=== PATIENT | male | born 1980 | race Caucasian/White ===

== ENCOUNTER 2020-05-20 14:09 | Emergency (ER) | payer SELFPAY ==
--- NOTE | 2020-05-20 16:24 | ER ---
Nurse's Notes [facility] Name: Rolan Torrez Age: 39 yrs Sex: Male : 1980 Arrival Date: 05/20/2020 Time: 14:11 Bed 19 Private MD: Diagnosis: Viral infection, unspecified Presentation: 05/20 14:27 Chief complaint: Patient states: Feeling sick since Tuesday, fever, diarrhea and body ca1 aches. Denies cough and SOB. Reports Nausea. Htemp 100.8F. Coronavirus screen: Patient denies a cough. Patient denies shortness of breath or difficulty breathing. Patient reports a measured and/or subjective temperature greater than 100.4F. Patient denies travel on a cruise ship or to a country the [facility] currently lists as an affected area. Patient denies contact with known and/or suspected case of COVID-19. Surgical mask provided. Instructed to keep mask at all times and keep 6 feet physical distance from other patients/people in the lobby. 14:27 Method Of Arrival: Ambulatory ca1 14:27 Ebola Screen: Patient negative for fever greater than or equal to 101.5 degrees ca1 Fahrenheit, and additional compatible Ebola Virus Disease symptoms Patient denies exposure to infectious person. Patient denies travel to an Ebola-affected area in the 21 days before illness onset. No symptoms or risks identified at this time. Initial Sepsis Screen: Does the patient meet any 2 criteria? No. Patient's initial sepsis screen is negative. Does the patient have a suspected source of infection? No. Patient's initial sepsis screen is negative. Risk Assessment: Do you want to hurt yourself or someone else? Patient reports no desire to harm self or others. Onset of symptoms was May 20, 2020. 14:27 Acuity: YOEL 4 ca1 Historical: - Allergies: 14:30 No Known Allergies; ca1 - Home Meds: 14:30 None [Active]; ca1 - PMHx: 14:30 None; ca1 - PSHx: 14:30 left pinky toe ambutation; ca1 - Immunization history:: Adult Immunizations up to date. - Social history:: Smoking status: Patient reports the use of cigarette tobacco products, smokes one-half pack cigarettes per day. Screenin:35 Abuse screen: Denies threats or abuse. Nutritional screening: No deficits noted. rb1 Tuberculosis screening: No symptoms or risk factors identified. Fall Risk None identified. Assessment: 15:35 General: Appears in no apparent distress. Behavior is calm, cooperative, Reports fever rb1 for Tuesday. Pain: Complains of pain in bodyaches Quality of pain is described as aching. Neuro: Level of Consciousness is awake, alert, obeys commands, Oriented to person, place, time, situation. Cardiovascular: Capillary refill < 3 seconds. Respiratory: Airway is patent Respiratory effort is even, unlabored, Respiratory pattern is regular, symmetrical, Denies cough, shortness of breath. GI: Reports diarrhea, nausea. : No signs and/or symptoms were reported regarding the genitourinary system. Derm: Skin is pink, warm \T\ dry. 16:33 Reassessment: Patient appears in no apparent distress at this time. No changes from rb1 previously documented assessment. Vital Signs: 14:27 BP 118 / 83; Pulse 96; Resp 15 S; Temp 98(TE); Pulse Ox 100% on R/A; Weight 105.69 kg ca1 (R); Height 6 ft. 0 in. (182.88 cm) (R); 14:27 Body Mass Index 31.60 (105.69 kg, 182.88 cm) ca1 ED Course: 14:11 Patient arrived in ED. fj1 14:16 Triage completed. ca1 14:30 Arm band placed on right wrist. ca1 15:30 Brian Mccann PA is PHCP. jr8 15:30 Carlos Enrique Velazquez MD is Attending Physician. jr8 15:31 Shayy Clarke, RN is Primary Nurse. rb1 15:35 Patient has correct armband on for positive identification. Bed in low position. Call rb1 light in reach. Side rails up X 1. Pulse ox on. NIBP on. 16:44 No provider procedures requiring assistance completed. Patient did not have IV access rb1 during this emergency room visit. Administered Medications: No medications were administered Outcome: 16:23 Discharge ordered by . jr8 16:44 Discharged to home ambulatory. rb1 16:44 Condition: stable 16:44 Discharge instructions given to patient, Instructed on discharge instructions, follow up and referral plans. Demonstrated understanding of instructions, follow-up care, Prescriptions given X none 16:45 Patient left the ED. rb1 Addendum: 05/26/2020 10:42 Addendum: COVID-19 Result: Negative result given to RN to notify pt. Attempted to d m5 contact pt regarding negative COVID-19 swab results. Left voice mail. 05/28/2020 12:48 Addendum: COVID-19 Result: Negative result given to RN to notify pt. Attempted to d m5 contact pt regarding negative COVID-19 swab results. Signatures: Nicky Oliver RN RN dm5 Brian Mccann PA PA jr8 Shayy Clarke RN RN rb1 Lisa Maddox RN RN ca1 Kiran Luque fj1 Corrections: (The following items were deleted from the chart) 05/20 14:17 14:11 Chief complaint: Patient states: Tuesday started being so fatigued, SOB with ca1 exertion and burning sensation on chest. Cough and congestion started Tuesday too. Diarrhea stared Tuesday. Reports nausea. Denies vomiting. Denies fever ca1 14:18 14:11 Coronavirus screen: Patient reports a cough. Patient reports shortness of breath ca1 or difficulty breathing. Patient denies measured and/or subjective temperature greater than 100.4F prior to today's visit. Patient denies travel on a cruise ship or to a country the [facility] currently lists as an affected area. Patient denies contact with known and/or suspected case of COVID-19. Surgical mask provided. Instructed to keep mask at all times and keep 6 feet physical distance from other patients/people in the lobby ca1 14:19 14:11 Ebola Screen: Patient negative for fever greater than or equal to 101.5 degrees ca1 Fahrenheit, and additional compatible Ebola Virus Disease symptoms Patient denies exposure to infectious person. Patient denies travel to an Ebola-affected area in the 21 days before illness onset. No symptoms or risks identified at this time. ca1 14:19 14:11 Risk Assessment: Do you want to hurt yourself or someone else? Patient reports no ca1 desire to harm self or others. ca1 14:19 14:11 Initial Sepsis Screen: Does the patient meet any 2 criteria? No. Patient's ca1 initial sepsis screen is negative. Does the patient have a suspected source of infection? No. Patient's initial sepsis screen is negative. ca1 14:19 14:11 Onset of symptoms was May 20, 2020 ca1 ca1 14:19 14:11 Chief complaint: Patient states: Tuesday started being so fatigued, SOB with ca1 exertion and burning sensation on chest. Cough and congestion started Tuesday too. Diarrhea stared Tuesday. Reports nausea. Denies vomiting. Denies fever ca1 14: Coronavirus screen: Patient reports a cough. Patient reports shortness of breath ca1 or difficulty breathing. Patient denies measured and/or subjective temperature greater than 100.4F prior to today's visit. Patient denies travel on a cruise ship or to a country the [facility] currently lists as an affected area. Patient denies contact with known and/or suspected case of COVID-19. Surgical mask provided. Instructed to keep mask at all times and keep 6 feet physical distance from other patients/people in the lobby ca1 14: Method Of Arrival: Ambulatory ca1 ca1 14: Acuity: YOEL 3 ca1 ca1 14: BP 146 / 73; Pulse 83bpm; Resp 19bpm; Spontaneous; Pulse Ox 96% RA; Temp 97.2F ca1 Temporal; 100.7 kg Reported; Height 5 ft. 4 in. Reported; BMI: 38.1; ca1 14: Social history: Smoking status: Patient denies any tobacco usage or history of. ca1 ca1 14: Immunization history: Adult Immunizations ca1 ca1
--- NOTE | 2020-05-20 16:24 | EDPHYS ---
Physician Documentation [facility] Name: Rolan Torrez Age: 39 yrs Sex: Male : 1980 Arrival Date: 05/20/2020 Time: 14:11 Bed 19 Private MD: ED Physician Carlos Enrique Velazquez HPI: 05/20 16:14 This 39 yrs old Male presents to ER via Ambulatory with complaints of Fever, jr8 Cold Symptoms. 16:14 The patient reports fever, not measured (subjective). Onset: The symptoms/episode jr8 began/occurred gradually, 5 day(s) ago. Modifying factors: there are no obvious modifying factors. Associated signs and symptoms: Pertinent positives: arthralgias, diarrhea, headache. Severity of symptoms: At their worst the symptoms were mild in the emergency department the symptoms are unchanged. The patient has not experienced similar symptoms in the past. The patient has not recently seen a physician. Historical: - Allergies: 14:30 No Known Allergies; ca1 - Home Meds: 14:30 None [Active]; ca1 - PMHx: 14:30 None; ca1 - PSHx: 14:30 left pinky toe ambutation; ca1 - Immunization history:: Adult Immunizations up to date. - Social history:: Smoking status: Patient reports the use of cigarette tobacco products, smokes one-half pack cigarettes per day. ROS: 16:14 Eyes: Negative for injury, pain, redness, and discharge, ENT: Negative for injury, jr8 pain, and discharge, Neck: Negative for injury, pain, and swelling, Cardiovascular: Negative for chest pain, palpitations, and edema, Respiratory: Negative for shortness of breath, cough, wheezing, and pleuritic chest pain, Back: Negative for injury and pain, MS/Extremity: Negative for injury and deformity, Skin: Negative for injury, rash, and discoloration. 16:14 Constitutional: Positive for body aches, chills, fever, malaise. 16:14 Abdomen/GI: Positive for diarrhea, Negative for abdominal pain, nausea, vomiting, abdominal cramps, abdominal distension. 16:14 Neuro: Positive for headache. Exam: 16:14 Eyes: Pupils equal round and reactive to light, extra-ocular motions intact. Lids and jr8 lashes normal. Conjunctiva and sclera are non-icteric and not injected. Cornea within normal limits. Periorbital areas with no swelling, redness, or edema. ENT: Nares patent. No nasal discharge, no septal abnormalities noted. Tympanic membranes are normal and external auditory canals are clear. Oropharynx with no redness, swelling, or masses, exudates, or evidence of obstruction, uvula midline. Mucous membranes moist. Neck: Trachea midline, no thyromegaly or masses palpated, and no cervical lymphadenopathy. Supple, full range of motion without nuchal rigidity, or vertebral point tenderness. No Meningismus. Cardiovascular: Regular rate and rhythm with a normal S1 and S2. No gallops, murmurs, or rubs. Normal PMI, no JVD. No pulse deficits. Respiratory: Lungs have equal breath sounds bilaterally, clear to auscultation and percussion. No rales, rhonchi or wheezes noted. No increased work of breathing, no retractions or nasal flaring. Abdomen/GI: Soft, non-tender, with normal bowel sounds. No distension or tympany. No guarding or rebound. No evidence of tenderness throughout. Back: No spinal tenderness. No costovertebral tenderness. Full range of motion. Skin: Warm, dry with normal turgor. Normal color with no rashes, no lesions, and no evidence of cellulitis. MS/ Extremity: Pulses equal, no cyanosis. Neurovascular intact. Full, normal range of motion. Neuro: Awake and alert, GCS 15, oriented to person, place, time, and situation. Cranial nerves II-XII grossly intact. Motor strength 5/5 in all extremities. Sensory grossly intact. Cerebellar exam normal. Normal gait. Vital Signs: 14:27 BP 118 / 83; Pulse 96; Resp 15 S; Temp 98(TE); Pulse Ox 100% on R/A; Weight 105.69 kg ca1 (R); Height 6 ft. 0 in. (182.88 cm) (R); 14:27 Body Mass Index 31.60 (105.69 kg, 182.88 cm) ca1 MDM: 15:30 Patient medically screened. jr8 16:14 Data reviewed: vital signs, nurses notes, lab test result(s), and as a result, I will jr8 discharge patient. Data interpreted: Pulse oximetry: on room air is 100 %. Interpretation: normal. Counseling: I had a detailed discussion with the patient and/or guardian regarding: the historical points, exam findings, and any diagnostic results supporting the discharge/admit diagnosis, lab results, the need for outpatient follow up, a family practitioner, to return to the emergency department if symptoms worsen or persist or if there are any questions or concerns that arise at home. ED course: Explained to patient that he needs to isolate until he gets his covid results back. High suspicion based on presentation for Covid. If worse to come back . 05/20 15:48 Order name: COVID-Yvrose diane Administered Medications: No medications were administered Disposition: 05/20/20 16:23 Discharged to Home. Impression: Viral infection, unspecified. - Condition is Stable. - Discharge Instructions: Viral Respiratory Infection, COVID-19. - Medication Reconciliation Form, Thank You Letter, Antibiotic Education, Prescription Opioid Use form. - Follow up: Private Physician; When: 5 - 6 days; Reason: Recheck today's complaints, Continuance of care, Re-evaluation by your physician. - Problem is new. - Symptoms have improved. Addendum: 05/22/2020 21:14 Co-signature as Attending Physician, Carlos Enrique Velazquez MD Did not see or evaluate patient. p s1 I was available in the ED for consultation. Signature for administrative purposes. . Signatures: Dispatcher [employer] EDMS Brian Mccann PA PA jr8 Shayy Clarke, RN RN rb1 Carlos Enrique Velazquez MD MD ps1 Lisa Maddox RN RN ca1 Corrections: (The following items were deleted from the chart) 05/20 14:19 14:11 Social history: Smoking status: Patient denies any tobacco usage or history of. ca1 ca1 14:19 14:11 Immunization history: Adult Immunizations ca1 ca1 16:45 16:23 05/20/2020 16:23 Discharged to Home. Impression: Viral infection, unspecified. rb1 Condition is Stable. Forms are Medication Reconciliation Form, Thank You Letter, Antibiotic Education, Prescription Opioid Use. Follow up: Private Physician; When: 5 - 6 days; Reason: Recheck today's complaints, Continuance of care, Re-evaluation by your physician. Problem is new. Symptoms have improved. jr8
[2020-05-20 16:52] VITALS: BP 118/83; TEMP 98; O2SAT 100
== END 2020-05-20 16:45 | disposition home or self-care (01) ==
LOC: ER 14:09
DX: B34.9 Viral infection, unspecified (principal); Z20.828 Contact with and (suspected) exposure to other viral communicable diseases; F17.210 Nicotine dependence, cigarettes, uncomplicated
CPT/HCPCS: 99283; U0001

== ENCOUNTER 2021-02-24 14:52 | Emergency (ER) | payer SELFPAY ==
--- NOTE | 2021-02-24 15:57 | RAD REPORT ---
EXAM DESCRIPTION: RAD - Chest Single View - 02/24/2021 3:41 pm CLINICAL HISTORY: Congestion;Cough COMPARISON: Two view chest August 2016 TECHNIQUE: AP portable chest image was obtained 02/24/2021 3:41 pm . FINDINGS: Lungs are clear. Heart and vasculature are normal. No measurable pleural effusion and no p neumothorax. No acute bony abnormality seen. No acute aortic findings suspected. IMPRESSION: No acute cardiopulmonary process. No significant change from comparison study.
[2021-02-24] MEDS ORDERED: ALBUTEROL 2.5 MG/3 ML NEB SOL ONE (16:00)
[2021-02-24] MEDS ORDERED: IPRATROPIUM BROM 0.5MG/2.5ML ONE (16:00)
[2021-02-24] MEDS ORDERED: predniSONE 20 MG TAB ONE (16:00)
[2021-02-24 16:54] LABS: SARS-COV-2 RT PCR NEGATIVE (NEGATIVE)
--- NOTE | 2021-02-24 17:08 | EDPHYS ---
Physician Documentation [facility] Name: Rolan Torrez Age: 40 yrs Sex: Male : 1980 Arrival Date: 02/24/2021 Time: 14:59 Bed 4 Private MD: ED Physician Javier Webb HPI: 02/24 17:28 This 40 yrs old Male presents to ER via Ambulatory with complaints of Fever, kdr Cough. 17:43 The patient or guardian reports airway noise, cough, difficulty breathing, flu kdr symptoms, arthralgias, low-grade fever, myalgias, no appetite. Onset: The symptoms/episode began/occurred gradually, 2 week(s) ago. Severity of symptoms: At their worst the symptoms were mild, in the emergency department the symptoms are unchanged. Modifying factors: The symptoms are alleviated by nothing, the symptoms are aggravated by nothing. Associated signs and symptoms: Pertinent positives: fever, nausea, rhinorrhea, sore throat. The patient has not experienced similar symptoms in the past. The patient has been recently seen by a physician: the patient's primary care provider, Had negative COVID test three days ago. Historical: - Allergies: 15:22 No Known Allergies; jl7 - Home Meds: 15:22 None [Active]; jl7 - PMHx: 15:22 None; jl7 - PSHx: 15:22 None; jl7 - Immunization history:: Adult Immunizations not up to date. - Social history:: Smoking status: Patient reports the use of cigarette tobacco products, smokes one-half pack cigarettes per day. ROS: 17:43 Constitutional: Negative for fever, chills, and weight loss, Eyes: Negative for injury, kdr pain, redness, and discharge, Neck: Negative for injury, pain, and swelling, Cardiovascular: Negative for chest pain, palpitations, and edema, Abdomen/GI: Negative for abdominal pain, nausea, vomiting, diarrhea, and constipation, Back: Negative for injury and pain, : Negative for injury, bleeding, discharge, and swelling, MS/Extremity: Negative for injury and deformity, Skin: Negative for injury, rash, and discoloration, Neuro: Negative for headache, weakness, numbness, tingling, and seizure activity. Psych: Negative for depression, anxiety, suicide ideation, homicidal ideation, and hallucinations, Allergy/Immunology: Negative for hives, rash, and allergies, Endocrine: Negative for neck swelling, polydipsia, polyuria, polyphagia, and marked weight changes, Hematologic/Lymphatic: Negative for swollen nodes, abnormal bleeding, and unusual bruising. 17:43 Respiratory: Positive for cough, with no reported sputum, dyspnea on exertion, shortness of breath, Negative for hemoptysis, orthopnea, pleurisy. Exam: 17:43 Constitutional: This is a well developed, well nourished patient who is awake, alert, kdr and in no acute distress. Head/Face: Normocephalic, atraumatic. Eyes: Pupils equal round and reactive to light, extra-ocular motions intact. Lids and lashes normal. Conjunctiva and sclera are non-icteric and not injected. Cornea within normal limits. Periorbital areas with no swelling, redness, or edema. Neck: Trachea midline, no thyromegaly or masses palpated, and no cervical lymphadenopathy. Supple, full range of motion without nuchal rigidity, or vertebral point tenderness. No Meningismus. Chest/axilla: Normal chest wall appearance and motion. Nontender with no deformity. No lesions are appreciated. Cardiovascular: Regular rate and rhythm with a normal S1 and S2. No gallops, murmurs, or rubs. Normal PMI, no JVD. No pulse deficits. Respiratory: Lungs have equal breath sounds bilaterally, clear to auscultation and percussion. No rales, rhonchi or wheezes noted. No increased work of breathing, no retractions or nasal flaring. Abdomen/GI: Soft, non-tender, with normal bowel sounds. No distension or tympany. No guarding or rebound. No evidence of tenderness throughout. Back: No spinal tenderness. No costovertebral tenderness. Full range of motion. Skin: Warm, dry with normal turgor. Normal color with no rashes, no lesions, and no evidence of cellulitis. MS/ Extremity: Pulses equal, no cyanosis. Neurovascular intact. Full, normal range of motion. Neuro: Awake and alert, GCS 15, oriented to person, place, time, and situation. Cranial nerves II-XII grossly intact. Motor strength 5/5 in all extremities. Sensory grossly intact. Cerebellar exam normal. Normal gait. Psych: Awake, alert, with orientation to person, place and time. Behavior, mood, and affect are within normal limits. Vital Signs: 15:11 BP 113 / 86; Pulse 84; Resp 17 S; Temp 97.4(TE); Pulse Ox 100% on R/A; Weight 104.33 kg jl7 (R); Height 6 ft. 0 in. (182.88 cm) (R); Pain 1/10; 15:11 Body Mass Index 31.19 (104.33 kg, 182.88 cm) jl7 MDM: 17:07 Patient medically screened. kdr 17:43 Data reviewed: vital signs, nurses notes, lab test result(s), radiologic studies. kdr Counseling: I had a detailed discussion with the patient and/or guardian regarding: the historical points, exam findings, and any diagnostic results supporting the discharge/admit diagnosis, lab results, radiology results, the need for outpatient follow up. 02/24 15:27 Order name: CXR XRAY; Complete Time: 17:06 kdr 02/24 15:27 Order name: Strep; Complete Time: 17:06 kdr 02/24 16:25 Order name: Throat Culture EDMS 02/24 16:54 Order name: COVID-19/FLU A+B; Complete Time: 17:06 EDMS Administered Medications: 15:47 Not Given (Patient Refused): Albuterol - atroVENT (ipratropium) (3:1) (2.5 mg - 0.5 mg) jd3 3 ml Nebulizer once 15:47 Drug: predniSONE 60 mg Route: PO; jd3 16:00 Follow up: Response: No adverse reaction jd3 Disposition: 02/24/21 17:07 Discharged to Home. Impression: Viral infection, unspecified, Acute upper respiratory infection, unspecified, Bronchitis, not specified as acute or chronic. - Condition is Stable. - Discharge Instructions: Upper Respiratory Infection, Adult, Acute Bronchitis, [id number], Upper Respiratory Infection, Adult, Atue-kn-Egam, Viral Respiratory Infection, Zoru-Mj-Mgpm. - Prescriptions for Tessalon Perles 100 mg Oral Capsule - take 1 capsule by ORAL route every 8 hours As needed; 15 capsule. Albuterol Sulfate 90 mcg/actuation - inhale 1-2 puff by INHALATION route every 4-6 hours; 1 Inhaler. - Medication Reconciliation Form, Thank You Letter, Work release form form. - Follow up: Private Physician; When: 2 - 3 days; Reason: If symptoms return, Further diagnostic work-up, Recheck today's complaints, Continuance of care, Re-evaluation by your physician. - Problem is an ongoing problem. - Symptoms are unchanged. Signatures: Dispatcher [employer] [facility] Javier Webb MD MD kdr Leal, Jahala RN RN jl7 Pierre Lerma RN RN jd3 Corrections: (The following items were deleted from the chart) 15:54 15:28 Influenza Screen (A \T\ B)+BA.LAB.BRZ ordered. EDCT EDCT 15:55 15:28 CORONAVIRUS+MR.LAB.BRZ ordered. [facility] EDCT 17:24 17:07 02/24/2021 17:07 Discharged to Home. Impression: Viral infection, unspecified; jl7 Acute upper respiratory infection, unspecified; Bronchitis, not specified as acute or chronic. Condition is Stable. Forms are Medication Reconciliation Form, Thank You Letter, Antibiotic Education, Prescription Opioid Use. Follow up: Private Physician; When: 2 - 3 days; Reason: If symptoms return, Further diagnostic work-up, Recheck today's complaints, Continuance of care, Re-evaluation by your physician. Problem is an ongoing problem. Symptoms are unchanged. kdr
--- NOTE | 2021-02-24 17:08 | ER ---
Nurse's Notes [facility] Name: Rolan Torrez Age: 40 yrs Sex: Male : 1980 Arrival Date: 02/24/2021 Time: 14:59 Bed 4 Private MD: Diagnosis: Viral infection, unspecified;Acute upper respiratory infection, unspecified;Bronchitis, not specified as acute or chronic Presentation: 02/24 15:11 Chief complaint: Patient states: Cough, runny nose, chills, loss of smell and taste jl7 since 02-14-21, had a negative COVID test 3 days ago, continues to feel bad. Coronavirus screen: chills, cough unrelated to allergies, fatigue, runny nose, loss of taste or smell. Ebola Screen: No symptoms or risks identified at this time. Initial Sepsis Screen: Does the patient meet any 2 criteria? No. Patient's initial sepsis screen is negative. Does the patient have a suspected source of infection? No. Patient's initial sepsis screen is negative. Risk Assessment: Do you want to hurt yourself or someone else? Patient reports no desire to harm self or others. Onset of symptoms was February 14, 2021. Care prior to arrival: None. Transition of care: patient was not received from another setting of care. 15:11 Method Of Arrival: Ambulatory [facility] 15:11 Acuity: YOEL 4 jl7 Triage Assessment: 15:22 General: Appears in no apparent distress. uncomfortable, Behavior is calm, cooperative, jl7 appropriate for age. Pain: Denies pain. Historical: - Allergies: 15:22 No Known Allergies; jl7 - Home Meds: 15:22 None [Active]; jl7 - PMHx: 15:22 None; jl7 - PSHx: 15:22 None; jl7 - Immunization history:: Adult Immunizations not up to date. - Social history:: Smoking status: Patient reports the use of cigarette tobacco products, smokes one-half pack cigarettes per day. Screenin:05 Abuse screen: Denies threats or abuse. Nutritional screening: No deficits noted. jd3 Tuberculosis screening: No symptoms or risk factors identified. Fall Risk Ambulatory Aid- None/Bed Rest/Nurse Assist (0 pts). Gait- Normal/Bed Rest/Wheelchair (0 pts) Mental Status- Oriented to own ability (0 pts). Total Sandhu Fall Scale indicates No Risk (0-24 pts). Assessment: 16:10 General: Appears in no apparent distress. comfortable, Behavior is calm, cooperative, jd3 appropriate for age. Pain: Complains of pain in head Quality of pain is described as aching. Neuro: Level of Consciousness is awake, alert, obeys commands, Oriented to person, place, time, situation. Cardiovascular: Denies chest pain, Capillary refill < 3 seconds Patient's skin is warm and dry. Respiratory: Reports cough that is non-productive, persistent Airway is patent Respiratory effort is even, unlabored, Respiratory pattern is regular, symmetrical, Denies shortness of breath. GI: No signs and/or symptoms were reported involving the gastrointestinal system. : No signs and/or symptoms were reported regarding the genitourinary system. EENT: Reports nasal congestion nasal discharge. Derm: Skin is intact, Skin is dry, Skin is normal, Skin temperature is warm. Musculoskeletal: Circulation, motion, and sensation intact. Range of motion: intact in all extremities. 17:04 Reassessment: Patient appears in no apparent distress at this time. No changes from jd3 previously documented assessment. Patient and/or family updated on plan of care and expected duration. Pain level reassessed. Patient is alert, oriented x 3, equal unlabored respirations, skin warm/dry/pink. Vital Signs: 15:11 BP 113 / 86; Pulse 84; Resp 17 S; Temp 97.4(TE); Pulse Ox 100% on R/A; Weight 104.33 kg jl7 (R); Height 6 ft. 0 in. (182.88 cm) (R); Pain 1/10; 15:11 Body Mass Index 31.19 (104.33 kg, 182.88 cm) jl7 ED Course: 14:59 Patient arrived in ED. mr 14:59 Javier Webb MD is Attending Physician. kdr 15:21 Triage completed. jl7 15:22 Arm band placed on right wrist. jl7 15:23 Pierre Lerma, ROM is Primary Nurse. jd3 15:41 CXR XRAY In Process Unspecified. EDMS 17:05 Patient has correct armband on for positive identification. Bed in low position. Call jd3 light in reach. Side rails up X 1. Adult w/ patient. Pulse ox on. NIBP on. 17:23 No provider procedures requiring assistance completed. Patient did not have IV access jl7 during this emergency room visit. Administered Medications: 15:47 Not Given (Patient Refused): Albuterol - atroVENT (ipratropium) (3:1) (2.5 mg - 0.5 mg) jd3 3 ml Nebulizer once 15:47 Drug: predniSONE 60 mg Route: PO; jd3 16:00 Follow up: Response: No adverse reaction jd3 Outcome: 17:07 Discharge ordered by . kdr 17:23 Discharged to home ambulatory. jl7 17:23 Condition: stable 17:23 Discharge instructions given to patient, Instructed on discharge instructions, follow up and referral plans. medication usage, Demonstrated understanding of instructions, follow-up care, medications, Prescriptions given X 2. 17:24 Patient left the ED. jl7 Signatures: Dispatcher [employer] EDMS Javier Webb MD MD kdr Rivera, Cal Ervin RN RN jl7 Pierre Lerma RN RN jd3
[2021-02-24 17:29] VITALS: BP 113/86; TEMP 97.4; O2SAT 100
== END 2021-02-24 17:24 | disposition home or self-care (01) ==
LOC: ER 14:52
DX: B34.9 Viral infection, unspecified (principal); J06.9 Acute upper respiratory infection, unspecified; J40 Bronchitis, not specified as acute or chronic; F17.210 Nicotine dependence, cigarettes, uncomplicated; Z20.822 Contact with and (suspected) exposure to COVID-19
CPT/HCPCS: 0240U; 71045; 87070; 87081; 99284; J7512

== ENCOUNTER 2022-03-10 13:19 | Emergency (ER) | payer SELFPAY ==
--- OUTSIDE RECORDS SUMMARY | 2022-03-10 13:22 | XMS REPORT | Continuity of Care Document ---
:1980 Author Organization [facility] t Address [address] [place] [address] Care Team Providers Name Role Phone Unavailable Unavailable Unavailable Problems This patient has no known problems. Allergies, Adverse Reactions, Alerts This patient has no known allergies or adverse reactions. Medications This patient has no known medications. Procedures This patient has no known procedures. Results Test Description Test Time Test Comments Results Result Comments Source SARS-CoV-2 (COVID-19), RT-PCR/TMA 2021-11-24 07:58:53 Test Item Value Reference Range Interpretation Comme nts SARS-CoV-2 INTERPRETATION NEGATIVE SEE NOTE S ARS-CoV-2 RNA NOT (test code = 30509) DETECTED Negative results do not preclude SARS-C oV-2 infection and should notb e used as the sole basis for patient management deci sions. Negativeresults must be combined with clinical o bservations, patient history ,and epidemiological information. Optimum specime n types and timingfor peak viral levels during infectio ns caused by SARS-CoV-2 have notbeen determined. Col lection of multiple specim ens or types ofspecimens may be necessary to detect virus. I mproper specimencollect ion and handling, sequence variab ility under primers/probes, or organism present below t he limit of detection may l ead to falsenegative r esults. Positive and negative pr edictive values oftesting are h ighly dependent on prevalence. False negative testresults are more likely when prevalence is h igh. SOURCE (test code = 57607) NASOPHARYNGEAL Note: Methodology is Melecio Jose Real-Time RT-PCR. The expected r esult or reference range is NEGATIVE (Not Detected). For more information regarding COVID -19 testing to include clinica linformation, methodology det ail, intended use, FDA author ization andrecommended fact sheets for patients or hea lthcare providers, see [facility] Announcement: S ARS-CoV-2 (COVID-19) by Toni SUNSHINE at URL below (note,fact shee ts are provided by method given in report:https:// www.JiaThis/c linbrigida/della t-communications/ Alternatively, see downloadable PDF fact sheet at:https://www. JiaThis/COVID -19-RT-PCR UNLESS OTHERWISE INDIC ATED, ALL TESTING PERFORMED [facility], [facility]. [address] [place] [address] LABORATORY DIRE CTOR: ALIVIA PLASCENCIA M.D. CLIA NUMBER [id number] [place]. [id number]
[2022-03-10] MEDS ORDERED: KETOROLAC 30 MG/ML INJ ONE (14:34)
[2022-03-10] MEDS ORDERED: METHYLPREDNISOLONE 125 MG INJ ONE (14:34)
[2022-03-10] MEDS ORDERED: ONDANSETRON 4 MG/2 ML VIAL ONE (14:34)
[2022-03-10] MEDS ORDERED: NA CHLORIDE 0.9% 1,000 ML ONE (14:34)
[2022-03-10] MEDS ORDERED: FAMOTIDINE 20 MG/2 ML VIAL IV ONE (14:34)
[2022-03-10 14:46] LABS: Absolute Lymphocytes (CBC) 0.9 K/uL (0.7-4.9); Hematocrit 41.2 % (39.6-49.0); Lymphocytes % 22.3 % (15.3-44.8); RBC Red Blood Cell Count 4.51 M/uL (4.33-5.43)
[2022-03-10 14:47] LABS: Protime INR 0.99
[2022-03-10 14:57] LABS: Albumin 3.5 g/dL (3.4-5.0); Bilirubin Total 0.3 mg/dL (0.2-1.0); Potassium 3.4 mmol/L (3.5-5.1); Protein, Total 6.9 g/dL (6.4-8.2)
[2022-03-10 16:14] LABS: SARS-COV-2 RT PCR POSITIVE (NEGATIVE)
--- NOTE | 2022-03-10 16:31 | EDPHYS ---
Physician Documentation [facility] Name: Rolan Torrez Age: 41 yrs Sex: Male : 1980 Arrival Date: 03/10/2022 Time: 13:22 Bed 7 Private MD: ED Physician Javier Webb HPI: 03/10 15:21 This 41 yrs old Male presents to ER via Ambulatory with complaints of Fever, Body Aches.kdr 15:21 The patient reports fever, that was measured at 102 degrees Fahrenheit, with a pattern kdr that is intermittent, waxing and waning. Onset: The symptoms/episode began/occurred last night, Patient states that last evening after he got home from work he began to feel ill. He began at that time to have fevers and chills. He has had a dry nonproductive cough. Otherwise had generalized body aches and rigors. Modifying factors: there are no obvious modifying factors. Associated signs and symptoms: Pertinent positives: backache, chills, cough, that is dry. Severity of symptoms: At their worst the symptoms were mild in the emergency department the symptoms are unchanged. The patient has experienced a previous episode. The patient has not recently seen a physician. 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 - Social history:: Smoking status: Patient reports the use of cigarette tobacco products, smokes one-half pack cigarettes per day. ROS: 15:21 Constitutional: Patient has had fever and chills, and rigors but without significant kdr weight loss Eyes: Negative for injury, pain, redness, and discharge, Neck: Negative for injury, pain, and swelling, Cardiovascular: Negative for chest pain, palpitations, and edema, Abdomen/GI: Negative for abdominal pain, nausea, vomiting, diarrhea, and constipation, Back: Negative for injury and pain, : Negative for injury, bleeding, discharge, and swelling, MS/Extremity: Negative for injury and deformity, Skin: Negative for injury, rash, and discoloration, Neuro: Negative for headache, weakness, numbness, tingling, and seizure activity. Psych: Negative for depression, anxiety, suicide ideation, homicidal ideation, and hallucinations, Allergy/Immunology: Negative for hives, rash, and allergies, Endocrine: Negative for neck swelling, polydipsia, polyuria, polyphagia, and marked weight changes, Hematologic/Lymphatic: Negative for swollen nodes, abnormal bleeding, and unusual bruising. 15:21 Respiratory: Positive for cough, with no reported sputum, shortness of breath. Exam: 15:21 Constitutional: This is a well developed, well nourished patient who is awake, alert, kdr and in no acute distress. Head/Face: Normocephalic, atraumatic. Eyes: Pupils equal round and reactive to light, extra-ocular motions intact. Lids and lashes normal. Conjunctiva and sclera are non-icteric and not injected. Cornea within normal limits. Periorbital areas with no swelling, redness, or edema. Neck: Trachea midline, no thyromegaly or masses palpated, and no cervical lymphadenopathy. Supple, full range of motion without nuchal rigidity, or vertebral point tenderness. No Meningismus. Chest/axilla: Normal chest wall appearance and motion. Nontender with no deformity. No lesions are appreciated. Cardiovascular: Regular rate and rhythm with a normal S1 and S2. No gallops, murmurs, or rubs. Normal PMI, no JVD. No pulse deficits. Respiratory: Lungs have equal breath sounds bilaterally, clear to auscultation and percussion. No rales, rhonchi or wheezes noted. No increased work of breathing, no retractions or nasal flaring. Abdomen/GI: Soft, non-tender, with normal bowel sounds. No distension or tympany. No guarding or rebound. No evidence of tenderness throughout. Back: No spinal tenderness. No costovertebral tenderness. Full range of motion. Skin: Warm, dry with normal turgor. Normal color with no rashes, no lesions, and no evidence of cellulitis. MS/ Extremity: Pulses equal, no cyanosis. Neurovascular intact. Full, normal range of motion. Neuro: Awake and alert, GCS 15, oriented to person, place, time, and situation. Cranial nerves II-XII grossly intact. Motor strength 5/5 in all extremities. Sensory grossly intact. Cerebellar exam normal. Normal gait. Psych: Awake, alert, with orientation to person, place and time. Behavior, mood, and affect are within normal limits. 17:52 ECG was reviewed by the Attending Physician. kdr Vital Signs: 13:43 BP 188 / 162; Pulse 89; Resp 16; Temp 100.3; Pulse Ox 97% ; Weight 92.99 kg; Height 6 ll1 ft. 0 in. (182.88 cm); Pain 10/10; 13:49 BP 205 / 186; ll1 13:55 BP 114 / 68; ll1 15:59 BP 103 / 70; Pulse 73; Pulse Ox 98% on R/A; ap3 16:14 Temp 99(O); ap3 13:43 Body Mass Index 27.80 (92.99 kg, 182.88 cm) ll1 MDM: 16:31 Patient medically screened. kdr 17:53 Data reviewed: vital signs, lab test result(s), radiologic studies. Counseling: I had a kdr detailed discussion with the patient and/or guardian regarding: the historical points, exam findings, and any diagnostic results supporting the discharge/admit diagnosis, lab results, radiology results, the need for outpatient follow up. 03/10 13:48 Order name: COVID-19/FLU A+B (Document "Date of Onset" if Symptomatic); Complete Time: ll1 16:30 03/10 14:09 Order name: Blood Culture Adult (2) kdr 03/10 14:09 Order name: CBC with Diff; Complete Time: 15:20 [facility] 03/10 14:09 Order name: CMP; Complete Time: 15:20 [facility] 03/10 14:09 Order name: Lactate; Complete Time: 15:20 [facility] 03/10 14:09 Order name: Protime (+inr); Complete Time: 15:20 [facility] 03/10 14:09 Order name: Ptt, Activated; Complete Time: 15:20 [facility] 03/10 14:09 Order name: Accucheck; Complete Time: 14:26 [facility] 03/10 14:09 Order name: Cardiac monitoring; Complete Time: 16:07 [facility] 03/10 14:09 Order name: EKG - Nurse/Tech; Complete Time: 16:07 [facility] 03/10 14:09 Order name: IV Saline Lock - Large Bore; Complete Time: 14:26 [facility] 03/10 14:09 Order name: Labs collected and sent; Complete Time: 14: [facility] 03/10 14:09 Order name: O2 Per Protocol; Complete Time: 14:14 [facility] 03/10 14:09 Order name: O2 Sat Monitoring; Complete Time: 14:14 kdr EC:52 Rate is 69 beats/min. Rhythm is regular, Normal Sinus Rhythm with No ectopy. QRS [place] kdr is Normal. MA interval is normal. QRS interval is normal. QT interval is normal. Clinical impression: Normal ECG. Administered Medications: 14:32 Drug: NS 0.9% 1000 ml Route: IV; Rate: 1 bolus; Site: right antecubital; ap3 16:53 Follow up: IV Status: Completed infusion; IV Intake: 1000ml ap3 14:32 Drug: Ketorolac 15 mg Route: IVP; Site: right antecubital; ap3 16:06 Follow up: Response: No adverse reaction ap3 14:32 Drug: SOLU-Medrol (methylPrednisoLONE) 125 mg Route: IVP; Site: right antecubital; ap3 16:07 Follow up: Response: No adverse reaction ap3 14:32 Drug: Zofran (Ondansetron) 4 mg Route: IVP; Site: right antecubital; ap3 16:07 Follow up: Response: No adverse reaction ap3 14:32 Drug: Pepcid (famotidine) 20 mg Route: IVP; Site: right antecubital; ap3 16:07 Follow up: Response: No adverse reaction ap3 Disposition Summary: 03/10/22 16:31 Discharge Ordered Location: Home kdr Problem: new kdr Symptoms: have improved kdr Condition: Stable kdr Diagnosis - SARS-associated coronavirus as the cause of diseases classified elsewhere kdr Followup: kdr - With: Private Physician - When: 2 - 3 days - Reason: If symptoms return, Further diagnostic work-up, Recheck today's complaints, Continuance of care, Re-evaluation by your physician Discharge Instructions: - Discharge Summary Sheet kdr - Severe Acute Respiratory Syndrome kdr - COVID-19 kdr - Things to Know about the COVID-19 Pandemic - [facility] kdr - 10 Things You Can Do to Manage Your COVID-19 Symptoms at Home - [facility] kdr - Viral Illness, Adult kdr - COVID-19: Quarantine vs. Isolation - [facility] kdr - Prevent the Spread of COVID-19 if You Are Sick - [facility] kdr Forms: - Medication Reconciliation Form kdr - Thank You Letter kdr Prescriptions: - Ibuprofen 600 mg Oral Tablet - take 1 tablet by ORAL route every 6 hours As needed take with food; 30 tablet; kdr Refills: 0, Product Selection Permitted - Medrol (Melvin) 4 mg Oral Tablets, Dose Pack - take 1 tablet by ORAL route as directed - follow package instructions; 1 kdr packet; Refills: 0, Product Selection Permitted Signatures: Dispatcher [employer] Javier Melgoza MD MD kdr Prokisch, Amanda, RN RN ap3 Loren Redyd RN RN ll1
--- NOTE | 2022-03-10 16:31 | ER ---
Nurse's Notes [facility] Name: Rolan Torrez Age: 41 yrs Sex: Male : 1980 Arrival Date: 03/10/2022 Time: 13:22 Bed 7 Private MD: Diagnosis: SARS-associated coronavirus as the cause of diseases classified elsewhere Presentation: 03/10 13:43 Chief complaint: Patient states: Fever, body aches, congestion, fatigue started ll1 yesterday. Fever 102.9 at home. Coronavirus screen: Vaccine status: Patient reports being unvaccinated. Client denies travel out of the [place] in the last 14 days. congestion, fatigue, fever, headache, muscle pain, loss of taste or smell, Client presents with at least one sign or symptom that may indicate coronavirus-19. Standard/surgical mask placed on the client. Ebola Screen: Patient denies travel to an Ebola-affected area in the 21 days before illness onset. Initial Sepsis Screen: Does the patient meet any 2 criteria? No. Patient's initial sepsis screen is negative. Does the patient have a suspected source of infection? Yes: Productive cough/pneumonia. Risk Assessment: Do you want to hurt yourself or someone else? Patient reports no desire to harm self or others. Onset of symptoms was March 09, 2022. 13:43 Method Of Arrival: Ambulatory ll1 13:43 Acuity: YOEL 2 ll1 Triage Assessment: 13:45 General: Appears uncomfortable, ill, Behavior is cooperative, appropriate for age. ll1 Pain: Complains of pain in body Quality of pain is described as aching. EENT: Reports nasal congestion. Neuro: Reports headache. Cardiovascular: No deficits noted. Respiratory: No deficits noted. Musculoskeletal: Reports pain in body aches. 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 - Social history:: Smoking status: Patient reports the use of cigarette tobacco products, smokes one-half pack cigarettes per day. Screenin:03 Abuse screen: Denies threats or abuse. Nutritional screening: No deficits noted. ap3 Tuberculosis screening: No symptoms or risk factors identified. Fall Risk None identified. Assessment: 14:03 General: Appears in no apparent distress. comfortable, Behavior is calm, cooperative, ap3 appropriate for age, Reports chills for fever for feeling ill for fatigue for. Pain: Complains of pain in generalized body aches Quality of pain is described as aching. Neuro: Level of Consciousness is awake, alert, obeys commands, Oriented to person, place, time, situation, Appropriate for age Gait is steady, Speech is normal. Cardiovascular: Patient's skin is warm and dry. Respiratory: Airway is patent Respiratory effort is even, unlabored, Respiratory pattern is regular, symmetrical. Vital Signs: 13:43 BP 188 / 162; Pulse 89; Resp 16; Temp 100.3; Pulse Ox 97% ; Weight 92.99 kg; Height 6 ll1 ft. 0 in. (182.88 cm); Pain 10/10; 13:49 BP 205 / 186; ll1 13:55 BP 114 / 68; ll1 15:59 BP 103 / 70; Pulse 73; Pulse Ox 98% on R/A; ap3 16:14 Temp 99(O); ap3 13:43 Body Mass Index 27.80 (92.99 kg, 182.88 cm) ll1 ED Course: 13:22 Patient arrived in ED. ds1 13:23 Javier Webb MD is Attending Physician. kdr 13:45 Triage completed. ll1 13:45 Arm band placed on. ll1 14:02 Jacy Purcell, RN is Primary Nurse. ap3 14:04 Pt visited by . ap3 14:04 Patient has correct armband on for positive identification. Bed in low position. Call ap3 light in reach. Side rails up X2. Adult w/ patient. Pulse ox on. NIBP on. Door closed. Noise minimized. 14:23 Initial lab(s) drawn, by me, sent to lab. First set of blood cultures drawn. vg1 14:25 Inserted saline lock: 20 gauge in right antecubital area, using aseptic technique. vg1 Blood collected. 16:52 No provider procedures requiring assistance completed. IV discontinued, intact, ap3 bleeding controlled, No redness/swelling at site. Pressure dressing applied. Administered Medications: 14:32 Drug: NS 0.9% 1000 ml Route: IV; Rate: 1 bolus; Site: right antecubital; ap3 16:53 Follow up: IV Status: Completed infusion; IV Intake: 1000ml ap3 14:32 Drug: Ketorolac 15 mg Route: IVP; Site: right antecubital; ap3 16:06 Follow up: Response: No adverse reaction ap3 14:32 Drug: SOLU-Medrol (methylPrednisoLONE) 125 mg Route: IVP; Site: right antecubital; ap3 16:07 Follow up: Response: No adverse reaction ap3 14:32 Drug: Zofran (Ondansetron) 4 mg Route: IVP; Site: right antecubital; ap3 16:07 Follow up: Response: No adverse reaction ap3 14:32 Drug: Pepcid (famotidine) 20 mg Route: IVP; Site: right antecubital; ap3 16:07 Follow up: Response: No adverse reaction ap3 Intake: 16:53 IV: 1000ml; Total: 1000ml. ap3 Outcome: 16:31 Discharge ordered by MD. kdr 16:53 Discharged to home ambulatory, with family. ap3 16:53 Condition: good 16:53 Discharge instructions given to patient, family, Instructed on discharge instructions, follow up and referral plans. medication usage, Demonstrated understanding of instructions, follow-up care, medications, Prescriptions given X 2. 16:53 Patient left the ED. ap3 Signatures: Javier Webb MD MD kdr Sanford, Demi ds1 Jacy Purcell RN RN ap3 Layne Field RN RN vg1 Loren Reddy RN RN ll1 Corrections: (The following items were deleted from the chart) 13:49 13:43 BP 188 / 102; Pulse 89bpm; Resp 16bpm; Pulse Ox 97%; Temp 100.3F; 92.99 kg; ll1 Height 6 ft. 0 in.; BMI: 27.8; Pain 10/10; ll1 13:49 13:43 Acuity: YOEL 3 ll1 ll1
[2022-03-10 17:09] VITALS: BP 103/70; TEMP 99; O2SAT 98
== END 2022-03-10 16:53 | disposition home or self-care (01) ==
LOC: ER 13:19
DX: U07.1 COVID-19 (principal); F17.210 Nicotine dependence, cigarettes, uncomplicated
CPT/HCPCS: 0240U; 36415; 80053; 83605; 85025; 85610; 85730; 87040; J2405; J2930; J3490; J7030

== ENCOUNTER 2022-11-30 13:05 | Emergency (ER) | payer SELFPAY ==
--- OUTSIDE RECORDS SUMMARY | 2022-11-30 13:08 | XMS REPORT | Continuity of Care Document ---
:1980 Author Organization [facility] t Address [address] [place] [address] Care Team Providers Name Role Phone Unavailable Unavailable Unavailable Problems This patient has no known problems. Allergies, Adverse Reactions, Alerts This patient has no known allergies or adverse reactions. Medications This patient has no known medications. Procedures This patient has no known procedures. Encounters Start End Encounter Admission Attending Care Care Encounter Source Date/Time Date/Time Type Type Clinicians Facility Department ID 2022-09-01 2022-09-01 Outpatient [facility] [id number] Estevan 15:05:45 15:05:45 1019 F Adam Results Test Description Test Time Test Comments Results Result Comments Source SARS-CoV-2 (COVID-19), RT-PCR/TMA 2021-11-24 07:58:53 Test Item Value Reference Range Interpretation Comme nts SARS-CoV-2 INTERPRETATION NEGATIVE SEE NOTE S ARS-CoV-2 RNA NOT (test code = 15752) DETECTED Negative results do not preclude SARS-C oV-2 infection and should notb e used as the sole basis for patient management deci sions. Negativeresults must be combined with c linical observations, p atient history,and epi demiological information. Op timum specimen types and timin gfor peak viral levels during i nfections caused by SARS-CoV-2 h ave notbeen determined. Col lection of multiple specim ens or types ofspecimens may be necessary to detect virus. I mproper specimencollect ion and handling, seque nce variability under primers/p robes,or organism presen t below the limit of detect ion may lead to falsenegative r esults. Positive and negative pr edictive values oftesting are h ighly dependent on prevalence. False negative testresults are more likely when prevalence is high. SOURCE (test code = 36124) NASOPHARYNGEAL Note: Methodology is Melecio Jose Real-Time RT-PCR. The expected result or reference range is NEGATI VE (Not Detected). For more information regarding COVID -19 testing to include clinica linformation, methodology det ail, intended use, FDA author ization andrecommended fact sheets for patients or a lthcare providers, see NewTest Announcement: S ARS-CoV-2 (COVID-19) by N AAT at URL below (note,fact shee ts are provided by method given in report:https:// www.sportif225/ clinicians/logan nt-communication s/ Alternativel y, see downloadable PD F fact sheet at:https://www. sportif225/COVI D-19-RT-PCR UNL ESS OTHERWISE INDICATED, ALL TESTING PERFORMED [facility], [facility]. [address] [place] [address] 4 ASSISTANT HEALTH EDUCATOR: Jayjay SMITH [id number] CAP ACCREDITATION N O. [id number]
[2022-11-30 13:28] LABS: Urine Blood Trace-intact (Negative); Urine Glucose Negative (Negative); Urine Protein Negative (Negative); Urine Specific Gravity 1.025 (1.005-1.030); Urine pH 5.5 (5.0-7.0)
[2022-11-30 13:38] LABS: Hematocrit 48.2 % (39.6-49.0); Lymphocytes % 37.6 % (15.3-44.8); MCV 91.9 fL (80-100); MPV 7.9 fL (7.6-11.3); RBC Red Blood Cell Count 5.25 M/uL (4.33-5.43)
[2022-11-30 14:24] LABS: SARS-COV-2 RT PCR NEGATIVE (NEGATIVE)
--- NOTE | 2022-11-30 15:10 | ER ---
Nurse's Notes [facility] Name: Rolan Torrez Age: 42 yrs Sex: Male : 1980 Arrival Date: 11/30/2022 Time: 13:05 Bed 12 Private MD: Diagnosis: Acute upper respiratory infection, unspecified;Low back pain Presentation: 11/30 13:11 Chief complaint: Patient states: low back pain radiating down both legs that began 1 aa5 week ago, denies known injury. Coronavirus screen: At this time, the client does not indicate any symptoms associated with coronavirus-19. Ebola Screen: Patient denies travel to an Ebola-affected area in the 21 days before illness onset. Initial Sepsis Screen: Does the patient meet any 2 criteria? No. Patient's initial sepsis screen is negative. Does the patient have a suspected source of infection? No. Patient's initial sepsis screen is negative. Risk Assessment: Do you want to hurt yourself or someone else? Patient reports no desire to harm self or others. Onset of symptoms was November 2022. 13:11 Method Of Arrival: Ambulatory aa5 13:11 Acuity: YOEL 4 aa5 Triage Assessment: 13:17 General: Appears uncomfortable, Behavior is calm, cooperative. General: Reports fever ap3 for over the last week. feeling ill for over the last week. fatigue for over the last week. Pain: Complains of pain in lumbar area Pain radiates to right leg and left leg Pain began gradually. Neuro: Level of Consciousness is awake, alert, obeys commands, Oriented to person, place, time, situation, Gait is steady, Speech is normal. Cardiovascular: Patient's skin is warm and dry. Respiratory: Reports cough that is Airway is patent Respiratory effort is even, unlabored, Respiratory pattern is regular, symmetrical. 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 - Social history:: Smoking status: Patient reports the use of cigarette tobacco products, smokes one-half pack cigarettes per day. Screenin:13 [facility] ED Fall Risk Assessment (Adult) History of falling in the last 3 months, ap3 including since admission No falls in past 3 months (0 pts). Abuse screen: Denies threats or abuse. Nutritional screening: No deficits noted. Tuberculosis screening: No symptoms or risk factors identified. Assessment: 15:03 Reassessment: Patient is alert, oriented x 3, equal unlabored respirations, skin ap3 warm/dry/pink. Vital Signs: 13:12 BP 135 / 79; Pulse 80; Resp 16 S; Temp 99.1(TE); Pulse Ox 99% on R/A; Weight 97.52 kg aa5 (R); Height 6 ft. 0 in. (182.88 cm) (R); 13:12 Body Mass Index 29.16 (97.52 kg, 182.88 cm) aa5 ED Course: 13:05 Patient arrived in ED. am2 13:11 Arm band placed on. aa5 13:12 Triage completed. aa5 13:12 [facility] kb 13:12 Gabriel Yuan MD is Attending Physician. kb 13:18 Patient has correct armband on for positive identification. Bed in low position. Call ap3 light in reach. Side rails up X 1. Adult w/ patient. Pulse ox on. NIBP on. Door closed. Noise minimized. 13:19 Jacy Purcell, RN is Primary Nurse. ap3 13:30 COVID-19/FLU A+B Sent. bc6 13:30 Basic Metabolic Panel Sent. bc6 13:30 CBC with Diff Sent. bc6 13:30 Initial lab(s) drawn, by ut, sent to lab. COVID swab sent to lab. Inserted saline lock: bc6 20 gauge in right antecubital area, using aseptic technique. 15:23 No provider procedures requiring assistance completed. IV discontinued, intact, ap3 bleeding controlled, No redness/swelling at site. Pressure dressing applied. Administered Medications: No medications were administered Medication: 13:18 VIS not applicable for this client. ap3 Outcome: 15:09 Discharge ordered by . kb 15:23 Discharged to home ambulatory. ap3 15:23 Condition: good 15:23 Discharge instructions given to patient, Instructed on discharge instructions, follow up and referral plans. medication usage, Demonstrated understanding of instructions, follow-up care, medications, Prescriptions given X 2. 15:23 Patient left the ED. ap3 Signatures: Jessica Atkins FNP-C REFLECTOR DRILLER AND DEBURRER-Ckb Yocasta Long, RN RN aa5 Jacy Muniz am2 Jacy Purcell RN RN ap3 Deisy Muhammad 6
--- NOTE | 2022-11-30 15:10 | EDPHYS ---
Physician Documentation [facility] Name: Rolan Torrez Age: 42 yrs Sex: Male : 1980 Arrival Date: 11/30/2022 Time: 13:05 Bed 12 Private MD: ED Physician Gabriel Yuan HPI: 11/30 15:25 This 42 yrs old Male presents to ER via Ambulatory with complaints of Leg Pain, Low kb Back Pain. 15:25 The patient presents with pain that is acute. The symptoms are located in the low back. kb The pain radiates. The problem was sustained without known cause. Onset: The symptoms/episode began/occurred 1 week(s) ago. Modifying factors: The patient symptoms are alleviated by nothing, the patient symptoms are aggravated by any movement. Associated signs and symptoms: Pertinent positives: cough, congestion, sneezing. Severity of symptoms: At their worst the symptoms were mild, moderate, in the emergency department the symptoms are unchanged. The patient has not experienced similar symptoms in the past. The patient has not recently seen a physician. Pt reports he has had cough, congestion, and sneezing for the past week with low back pain. Denies injury or trauma. Denies urinary symptoms. . 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 - Social history:: Smoking status: Patient reports the use of cigarette tobacco products, smokes one-half pack cigarettes per day. ROS: 15:23 Constitutional: Negative for fever, chills, and weight loss. kb 15:23 ENT: Positive for rhinorrhea, sinus congestion, sneezing. 15:23 Respiratory: Positive for cough. 15:23 Back: Positive for pain at rest, pain with movement, of the low back area. 15:23 All other systems are negative. Exam: 15:23 Constitutional: This is a well developed, well nourished patient who is awake, alert, kb and in no acute distress. Head/Face: Normocephalic, atraumatic. ENT: Moist Mucous membranes Cardiovascular: Regular rate and rhythm with a normal S1 and S2. No gallops, murmurs, or rubs. No pulse deficits. Respiratory: Respirations even and unlabored. No increased work of breathing. Talking in full sentences Abdomen/GI: Soft, non-tender. No distention Skin: Warm, dry with normal turgor. Normal color. MS/ Extremity: Pulses equal, no cyanosis. Neurovascular intact. Full, normal range of motion. Neuro: Awake and alert, GCS 15, oriented to person, place, time, and situation. Moves all extremities. Normal gait. Vital Signs: 13:12 BP 135 / 79; Pulse 80; Resp 16 S; Temp 99.1(TE); Pulse Ox 99% on R/A; Weight 97.52 kg aa5 (R); Height 6 ft. 0 in. (182.88 cm) (R); 13:12 Body Mass Index 29.16 (97.52 kg, 182.88 cm) aa5 MDM: 13:12 Patient medically screened. kb 15:22 Differential diagnosis: strain, sciatica, UTI, covid, flu, uri. Data reviewed: vital kb signs, nurses notes. I considered the following discharge prescriptions or medication management in the emergency department Antibiotics: At this time antibiotics are not recommended. Test considered but Not performed: Other Details x-ray and ct considered, but pt has no tenderness and no injury. Counseling: I had a detailed discussion with the patient and/or guardian regarding: the historical points, exam findings, and any diagnostic results supporting the discharge/admit diagnosis, lab results, the need for outpatient follow up, a family practitioner, to return to the emergency department if symptoms worsen or persist or if there are any questions or concerns that arise at home. 11/30 13:17 Order name: CBC with Diff; Complete Time: 13:42 kb 11/30 13:17 Order name: Basic Metabolic Panel; Complete Time: 13:55 kb 11/30 13:17 Order name: Urine Dipstick-Ancillary (obtain specimen); Complete Time: 13:26 kb 11/30 13:17 Order name: IV Start; Complete Time: 13:30 kb 11/30 13:17 Order name: COVID-19/FLU A+B; Complete Time: 14:44 kb 11/30 13:28 Order name: Urine Dipstick-Ancillary; Complete Time: 13:29 EDMS Administered Medications: No medications were administered Disposition: 17:00 Co-signature as Attending Physician, Gabriel Yuan MD I reviewed the patient's care rt provided by the Advanced Practice Provider and agree with the diagnosis and treatment plan. Disposition Summary: 11/30/22 15:09 Discharge Ordered Location: Home kb Condition: Stable kb Diagnosis - Acute upper respiratory infection, unspecified kb - Low back pain kb Followup: kb - With: Emergency Department - When: As needed - Reason: Worsening of condition Followup: kb - With: Private Physician - When: 2 - 3 days - Reason: Recheck today's complaints, Continuance of care, Re-evaluation by your physician Discharge Instructions: - Discharge Summary Sheet kb - Musculoskeletal Pain kb - Upper Respiratory Infection, Adult, [id number] kb - Viral Respiratory Infection, [id number] kb Forms: - Medication Reconciliation Form kb - Thank You Letter kb - Antibiotic Education kb - Prescription Opioid Use kb - Work release form ap3 Prescriptions: - Diclofenac Sodium 75 mg Oral tablet,delayed release (DR/EC) - take 1 tablet by ORAL route 2 times per day As needed; 30 tablet; Refills: 0, kb Product Selection Permitted - orphenadrine citrate 100 mg Oral Tablet Sustained Release - take 1 tablet by ORAL route 2 times per day As needed; 20 tablet; Refills: 0, kb Product Selection Permitted Signatures: Dispatcher MedHost Jessica Gallego, ZULEMA-C GARMENT STEAMER-Yocasta Montague, RN RN aa5 Gabriel Yuan MD MD rt
[2022-11-30 15:40] VITALS: BP 135/79; TEMP 99.1; O2SAT 99
== END 2022-11-30 15:23 | disposition home or self-care (01) ==
LOC: ER 13:05
DX: J06.9 Acute upper respiratory infection, unspecified (principal); M54.50 Low back pain, unspecified; Z20.822 Contact with and (suspected) exposure to COVID-19
CPT/HCPCS: 0240U; 36415; 80048; 81003; 85025

== ENCOUNTER 2022-12-22 14:43 | Emergency (ER) | payer SELFPAY ==
--- OUTSIDE RECORDS SUMMARY | 2022-12-22 14:56 | XMS REPORT | Continuity of Care Document ---
:1980 Author Organization [facility] t Address [address] [place] [address] Care Team Providers Name Role Phone Unavailable [...] Clinicians Facility Department ID 2022-09-01 2022-09-01 Outpatient [facility] [id number] Estevan 15:05:45 15:05:45 1019 F Adam Results Test Description Test Time Test Comments Results Result Comments Source SARS-CoV-2 (COVID-19), RT-PCR/TMA 2021-11-24 07:58:53 Test Item Value Reference Range Interpretation Comme nts SARS-CoV-2 INTERPRETATION NEGATIVE SEE NOTE S ARS-CoV-2 RNA NOT (test code = 07688) DETECTED Negative results do not preclude SARS-C [...] prevalence is high. SOURCE (test code = 98172) NASOPHARYNGEAL Note: Methodology is Melecio Jose Real-Time [...] are provided by method given in report:https:// www.Datanyze/ clinicians/logan nt-communication s/ Alternativel y, see downloadable PD F fact sheet at:https://www. Datanyze/COVI D-19-RT-PCR UNL ESS OTHERWISE INDICATED, ALL TESTING PERFORMED [facility], [facility]. [address] [place] [address] 4 COARSE WIRE DRAWER: Jayjay SMITH [id number] CAP ACCREDITATION N O. [id number]
[2022-12-22] MEDS ORDERED: DIAZEPAM 5 MG TABLET ONE (15:40)
[2022-12-22] MEDS ORDERED: KETOROLAC 30 MG/ML INJ ONE (15:40)
--- NOTE | 2022-12-22 15:55 | RAD REPORT ---
EXAM DESCRIPTION: RAD - Ribs Right - 12/22/2022 3:49 pm CLINICAL HISTORY: SOB COMPARISON: Chest Single View dated 02/24/2021 FINDINGS: Posterior right seventh and eighth ribs are mildly fractured.
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
[2022-12-22 16:57] VITALS: BP 115/72; TEMP 98.8; O2SAT 95
== END 2022-12-22 16:37 | disposition home or self-care (01) ==
LOC: ER 14:43
DX: S22.41XA Multiple fractures of ribs, right side, initial encounter for closed fracture (principal); F17.210 Nicotine dependence, cigarettes, uncomplicated

== ENCOUNTER 2023-07-12 08:25 | Emergency (ER) | payer SELFPAY ==
--- OUTSIDE RECORDS SUMMARY | 2023-07-12 08:43 | XMS REPORT | Continuity of Care Document ---
:1980 Author Organization [facility] t Address [address] [facility]. [address] [place] [address] Care Team Providers Name Role Phone Unavailable [...] Clinicians Facility Department ID 2022-09-01 2022-09-01 Outpatient [facility] [id number] Estevan 15:05:45 15:05:45 1019 F Adam Results Test Description Test Time Test Comments Results Result Comments Source SARS-CoV-2 (COVID-19), RT-PCR/TMA 2021-11-24 07:58:53 Test Item Value Reference Range Interpretation Comme nts SARS-CoV-2 INTERPRETATION NEGATIVE SEE NOTE S ARS-CoV-2 RNA NOT (test code = 75035) DETECTED Negative results do not preclude SARS-C [...] prevalence is high. SOURCE (test code = 27052) NASOPHARYNGEAL Note: Methodology is Melecio Jose Real-Time RT-PCR. The expected result or reference range is NEGATI VE (Not Detected). For more information regarding COVID -19 testing to include clinica linformation, methodology det ail, intended use, FDA author ization andrecommended fact sheets for patients or a lthcare providers, see [facility] Announcement: S ARS-CoV-2 (COVID-19) by N AAT at URL below (note,fact shee ts are provided by method given in report:https:// www.[facility]/ clinicians/logan nt-communication s/ Alternativel y, see downloadable PD F fact sheet at:https://www. [facility]/COVI D-19-RT-PCR UNL ESS OTHERWISE INDICATED, ALL TESTING PERFORMED [facility], [facility]. [address] [place] [address] 4 BEHAVIORAL SCIENCE CHAIR: Jayjay SMITH [id number] CAP ACCREDITATION N O. [id number]
--- NOTE | 2023-07-12 10:39 | EDPHYS ---
Physician Documentation [facility] Name: Rolan Torrez Age: 42 yrs Sex: Male : 1980 Arrival Date: 07/12/2023 Time: 08:25 Bed 16 Private MD: ED Physician Yair Smith HPI: 07/12 10:38 This 42 yrs old Male presents to ER via Ambulatory with complaints of Cold Symptoms, ms3 Covid Exposure. 10:38 42-year-old male with no past medical history presents for chills, fever, decreased ms3 taste, body aches that have been ongoing for 3 days. Patient states his tested positive for COVID. Patient states his discomfort is a 2/10 and generalized aching. Patient denies alleviating or inciting factors. 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 - Social history:: Smoking status: Patient reports the use of cigarette tobacco products. ROS: 10:38 Neck: Negative for injury, pain, and swelling, Cardiovascular: Negative for chest pain, ms3 and palpitations. Respiratory: Negative for shortness of breath, cough, wheezing, and pleuritic chest pain, Abdomen/GI: Negative for abdominal pain, nausea, vomiting, diarrhea, and constipation. 10:38 Skin: Negative for injury, rash, and discoloration. 10:38 Constitutional: Positive for body aches, chills. 10:38 ENT: Positive for nasal discharge. 10:38 Respiratory: Positive for cough. 10:38 All other systems are negative. Exam: 10:38 Constitutional: This is a well developed, well nourished patient who is awake, alert, ms3 and in no acute distress. Head/Face: Normocephalic, atraumatic. Neck: Trachea midline, no cervical lymphadenopathy. Supple, full range of motion without nuchal rigidity, or vertebral point tenderness. No Meningismus. Chest/axilla: Normal chest wall appearance and motion. Nontender with no deformity. Cardiovascular: Regular rate and rhythm with a normal S1 and S2. No gallops, murmurs, or rubs. Normal PMI, no JVD. No pulse deficits. Respiratory: Lungs have equal breath sounds bilaterally, clear to auscultation and percussion. No rales, rhonchi or wheezes noted. No increased work of breathing, no retractions or nasal flaring. Abdomen/GI: Soft, non-tender, with normal bowel sounds. No distension or tympany. No guarding or rebound. No evidence of tenderness throughout. Skin: Warm, dry with normal turgor. Normal color with no rashes, no lesions, and no evidence of cellulitis. MS/ Extremity: Pulses equal, no cyanosis. Neurovascular intact. Full, normal range of motion. Vital Signs: 08:38 BP 128 / 77; Pulse 83; Resp 16; Temp 98.1(TE); Pulse Ox 98% ; Weight 81.65 kg; Height 6 iw ft. 0 in. ; 10:48 BP 124 / 74; Pulse 80; Resp 17; Pulse Ox 100% on R/A; mb9 08:38 Body Mass Index 24.41 (81.65 kg, 182.88 cm) iw MDM: 09:24 Patient medically screened. ms3 10:38 Differential Diagnosis: Bronchitis Upper Respiratory Infection Other COVID. ms3 10:38 Data reviewed: vital signs, nurses notes, lab test result(s), and as a result, I will ms3 discharge patient. Counseling: I had a detailed discussion with the patient and/or guardian regarding the historical points, exam findings, and any diagnostic results supporting the discharge/admit diagnosis, the need for outpatient follow up, to return to the emergency department if symptoms worsen or persist or if there are any questions or concerns that arise at home. Special discussion: I discussed with the patient/guardian in detail that at this point there is no indication for admission to the hospital. It is understood, however, that if the symptoms persist or worsen the patient needs to return immediately for re-evaluation. ED course: Discussed negative COVID results with patient. Patient to follow-up with primary care physician in 2 to 3 days. Patient understands and agrees with plan. All questions were answered. Return precautions discussed include worsening symptoms, or any other concerns. On reevaluation patient is alert and oriented x4, no apparent distress, nontoxic-appearing, ambulatory Emergency Department, speaking full sentences. 07/12 08:58 Order name: SARS-COV-2 RT PCR; Complete Time: 10:21 ms3 Administered Medications: No medications were administered Disposition Summary: 07/12/23 10:38 Discharge Ordered Location: Home ms3 Condition: Stable ms3 Diagnosis - Nasal congestion ms3 - Anosmia ms3 Discharge Instructions: - Discharge Summary Sheet ms3 - Upper Respiratory Infection, Adult ms3 - Upper Respiratory Infection, Adult, [id number] ms3 Forms: - Medication Reconciliation Form ms3 - Thank You Letter ms3 - Antibiotic Education ms3 - Prescription Opioid Use ms3 - Patient Portal Instructions ms3 - Leadership Thank You Letter ms3 - Work release form mb9 Prescriptions: - Flonase Allergy Relief 50 mcg/actuation Nasal spray, suspension - spray 2 spray by INTRANASAL route daily administer into each nostril; 1 unit; ms3 Refills: 0, Product Selection Permitted - Claritin 10 mg Oral Tablet - take 1 tablet by ORAL route once daily As needed; 30 tablet; Refills: 0, ms3 Product Selection Permitted Signatures: Dispatcher [employer] Lizzette Tran RN RN Yair Langford DO DO ms3
--- NOTE | 2023-07-12 10:39 | ER ---
Nurse's Notes [facility] Name: Rolan Torrez Age: 42 yrs Sex: Male : 1980 Arrival Date: 07/12/2023 Time: 08:25 Bed 16 Private MD: Diagnosis: Nasal congestion;Anosmia Presentation: 07/12 08:38 Chief complaint: Patient states: chills X 2 days , tested positive for COVID , iw also has loss of taste and fever. Coronavirus screen: Client presents with at least one sign or symptom that may indicate coronavirus-19. Ebola Screen: Patient negative for fever greater than or equal to 101.5 degrees Fahrenheit, and additional compatible Ebola Virus Disease symptoms Patient denies exposure to infectious person. Patient denies travel to an Ebola-affected area in the 21 days before illness onset. No symptoms or risks identified at this time. Initial Sepsis Screen: Does the patient meet any 2 criteria? No. Patient's initial sepsis screen is negative. Does the patient have a suspected source of infection? No. Patient's initial sepsis screen is negative. Risk Assessment: Do you want to hurt yourself or someone else? Patient reports no desire to harm self or others. Onset of symptoms was July 10, 2023. 08:38 Method Of Arrival: Ambulatory iw 08:38 Acuity: YOEL 4 iw Historical: - Allergies: 08:39 No Known Allergies; iw - Home Meds: 08:39 None [Active]; iw - PMHx: 08:39 None; iw - PSHx: 08:39 toe amputation; iw - Immunization history:: Client reports having NOT received the Covid vaccine. - Social history:: Smoking status: Patient reports the use of cigarette tobacco products. Screenin:35 [facility] ED Fall Risk Assessment (Adult) History of falling in the last 3 months, mb9 including since admission No falls in past 3 months (0 pts) Confusion or Disorientation No (0 pts) Intoxicated or Sedated No (0 pts) Impaired Gait No (0 pts) Mobility Assist Device Used No (0 pt) Altered Elimination No (0 pt) Score/Fall Risk Level 0 - 2 = Low Risk Oriented to surroundings, Maintained a safe environment, Educated pt \T\ family on fall prevention, incl call for assistance when getting out of bed. Abuse screen: Denies threats or abuse. Nutritional screening: No deficits noted. Tuberculosis screening: No symptoms or risk factors identified. Assessment: 09:34 General: Appears uncomfortable, Behavior is calm, cooperative. Pain: Complains of pain mb9 in entire body Pain does not radiate. Pain currently is 8 out of 10 on a pain scale. Quality of pain is described as aching, Pain began 2-3 days ago. Is continuous. Neuro: Mcdaniel Agitation-Sedation Scale (RASS): 0 - Alert and Calm Level of Consciousness is awake, alert, obeys commands, Oriented to person, place, time, situation, Appropriate for age. Cardiovascular: Patient's skin is warm and dry. Respiratory: Reports cough that is Breath sounds are clear bilaterally. GI: No signs and/or symptoms were reported involving the gastrointestinal system. : No signs and/or symptoms were reported regarding the genitourinary system. EENT: Reports nasal congestion. Derm: Skin is pink, warm \T\ dry. Musculoskeletal: Range of motion: intact in all extremities. 10:49 Reassessment: No changes from previously documented assessment. Patient and/or family mb9 updated on plan of care and expected duration. Pain level reassessed. Patient is alert, oriented x 3, equal unlabored respirations, skin warm/dry/pink. Vital Signs: 08:38 BP 128 / 77; Pulse 83; Resp 16; Temp 98.1(TE); Pulse Ox 98% ; Weight 81.65 kg; Height 6 iw ft. 0 in. ; 10:48 BP 124 / 74; Pulse 80; Resp 17; Pulse Ox 100% on R/A; mb9 08:38 Body Mass Index 24.41 (81.65 kg, 182.88 cm) iw ED Course: 08:30 Patient arrived in ED. mg5 08:38 Yair Smith DO is Attending Physician. ms3 08:39 Triage completed. iw 08:40 Arm band placed on. iw 09:34 Nory Mueller, ROM is Primary Nurse. mb9 09:35 Placed in gown. Bed in low position. Call light in reach. Side rails up X 1. Client mb9 placed on continuous cardiac and pulse oximetry monitoring. NIBP monitoring applied. 09:35 No provider procedures requiring assistance completed. Patient did not have IV access mb9 during this emergency room visit. Administered Medications: No medications were administered Medication: 09:35 VIS not applicable for this client. mb9 Outcome: 10:38 Discharge ordered by . ms3 10:49 Discharged to home ambulatory. mb9 10:49 Condition: stable 10:49 Discharge instructions given to patient, Instructed on discharge instructions, follow up and referral plans. Demonstrated understanding of instructions, follow-up care, medications, Prescriptions given X 2. 10:49 Patient left the ED. mb9 Signatures: Lizzette Sanders RN RN iw Yair Smith DO DO ms3 Nory Mueller RN RN mb9 Zaida Davis mg5 Corrections: (The following items were deleted from the chart) 08:42 08:38 BP 128 / 77; Pulse 83bpm; Resp 16bpm; Pulse Ox 98%; 81.65 kg; Height 6 ft. 0 in.; iw BMI: 24.4; iw
[2023-07-12 10:56] VITALS: TEMP 98.1
[2023-07-12 10:57] VITALS: BP 124/74; O2SAT 100
== END 2023-07-12 10:49 | disposition home or self-care (01) ==
LOC: ER 08:25
DX: R09.81 Nasal congestion (principal); R43.0 Anosmia; Z20.822 Contact with and (suspected) exposure to COVID-19
CPT/HCPCS: 87635

== ENCOUNTER 2024-01-03 10:22 | Observation (INO) | payer OTHER ==
[2024-01-03] MEDS ORDERED: LIDOCAINE HCL JELLY 2% 6 ML SYRINGE TOP ONE (10:54)
--- OUTSIDE RECORDS SUMMARY | 2024-01-03 11:06 | XMS REPORT | Continuity of Care Document ---
Author Name Unknown Address [address] [facility]. [address] [place] [address] [facility] thconnect Address [address] [place] [address] [address] [place] [address] Care Team Providers Care Sports Teacher Name Role Phone Unavailable Unavailable Unavailable Encounters Start Date/Time End Date/Time Encounter Type Admission Type Attending Clinicians Care Facility Care Department Encounter ID Source 2022-09-01 15:05:45 2022-09-01 15:05:45 Outpatient [facility] [id number] Brandie9 Estevan Medina Results Test Description Test Time Test Comments Results Result Co mments Source
[2024-01-03 11:29] LABS: Absolute Lymphocytes (CBC) 1.5 K/uL (0.7-4.9); Hematocrit 41.4 % (39.6-49.0); Lymphocytes % 13.6 % (15.3-44.8); MCV 92.1 fL (80-100); MPV 7.7 fL (7.6-11.3); Platelets 240 thou/uL (152-406)
[2024-01-03 11:45] LABS: Potassium 3.7 mEq/L (3.5-5.1)
[2024-01-03] MEDS ORDERED: MORPHINE 4 MG/ML SYR ONE (11:48)
[2024-01-03] MEDS ORDERED: NA CHLORIDE 0.9% 1,000 ML ONE (11:48)
--- NOTE | 2024-01-03 12:13 | RAD REPORT ---
EXAM DESCRIPTION: CTAbdomen Pelvis W Contrast - 01/03/2024 12:01 pm CLINICAL HISTORY: Abdominal pain. rectal abscess COMPARISON: No comparisons TECHNIQUE: Biphasic CT imaging of the abdomen and pelvis was performed with 100 ml non-ionic IV cont rast. All CT scans are performed using dose optimization technique as appropriate and may include automated exposure control or mA/KV adjustment according to patient size. FINDINGS: The lung bases are clear. The liver, spleen, pancreas, adrenal glands and kidneys are within normal limits. No bowel obstruction, free air, free fluid or intra-abdominal abscess. There is a thick-walled collec tion along the inferior margin of the rectum measuring 4.0 x 4.7 cm likely an abscess. There is moder ate inflammation present in the surrounding tissues. The appendix is normal. No evidence of signific ant lymphadenopathy. No suspicious bony findings. IMPRESSION: 4.7 cm abscess is present in the rectal region.
--- NOTE | 2024-01-03 12:28 | EDPHYS ---
Physician Documentation [facility] Name: Rolan Torrez Age: 43 yrs Sex: Male : 1980 Arrival Date: 01/03/2024 Time: 10:22 Bed 14 Private MD: ED Physician Yair Smith HPI: 01/03 10:53 This 43 yrs old Male presents to ER via Ambulatory with complaints of Hemorrhoids, ms3 Fever. 10:53 43-year-old male with no past medical history presents to the emergency department ms3 complaining of hemorrhoid pain that began last . Patient states his discomfort is a 10/10. Patient states heat makes the hemorrhoids worse and ice improve the swelling of his hemorrhoids.. Historical: - Allergies: 10:36 No Known Allergies; db - PSHx: 10:36 toe amputation; db - Immunization history:: Adult Immunizations unknown. - Social history:: Smoking status: Patient denies any tobacco usage or history of. ROS: 10:53 Constitutional: Negative for fever, and chills. Neck: Negative for injury, pain, and ms3 swelling, Cardiovascular: Negative for chest pain, and palpitations. Respiratory: Negative for shortness of breath, cough, wheezing, and pleuritic chest pain, 10:53 Abdomen/GI: Positive for rectal pain, 10:53 All other systems are negative, Exam: 10:53 Constitutional: This is a well developed, well nourished patient who is awake, alert, ms3 and in no acute distress. Head/Face: Normocephalic, atraumatic. Neck: Trachea midline, no cervical lymphadenopathy. Supple, full range of motion without nuchal rigidity, or vertebral point tenderness. No Meningismus. Chest/axilla: Normal chest wall appearance and motion. Nontender with no deformity. Cardiovascular: Regular rate and rhythm with a normal S1 and S2. No gallops, murmurs, or rubs. Normal PMI, no JVD. No pulse deficits. Respiratory: Lungs have equal breath sounds bilaterally, clear to auscultation and percussion. No rales, rhonchi or wheezes noted. No increased work of breathing, no retractions or nasal flaring. Abdomen/GI: Soft, non-tender, with normal bowel sounds. No distension or tympany. No guarding or rebound. No evidence of tenderness throughout. 10:53 : Rectal exam: Rectal tone: normal, the nurse was present for the exam, Induration, erythema present on right intergluteal cleft extending to anus., 15:50 ECG was reviewed by the Attending Physician. ms3 Vital Signs: 10:33 BP 121 / 86; Pulse 103 RA; Resp 18; Temp 96.6; Pulse Ox 95% on R/A; Weight 104.33 kg; db Height 6 ft. 0 in. ; Pain 10/10; 11:30 BP 111 / 69; Pulse 82; Resp 18; Pulse Ox 100% ; cp4 12:30 BP 111 / 87; Pulse 82; Resp 18; Pulse Ox 100% ; cp4 13:30 BP 109 / 78; Pulse 80; Resp 18; Pulse Ox 100% ; cp4 14:30 BP 105 / 84; Pulse 82; Resp 18; Pulse Ox 100% ; cp4 10:33 Body Mass Index 31.19 (104.33 kg, 182.88 cm) db 10:33 Pain Scale: Adult db MDM: 10:53 Differential diagnosis: Perirectal abscess vs Cellulitis vs Kirsten's gangrene. ms3 11:01 Patient medically screened. ms3 15:48 Data reviewed: vital signs, nurses notes, and as a result, I will admit patient. ms3 Consideration of Admission/Observation Patient was admitted/placed on observation. Management of patient was discussed with the following: Hospitalist: Dr Arellano. Sensor Operator: Dr Pearce. I considered the following discharge prescriptions or medication management in the emergency department Medications were administered in the Emergency Department. See MAR. Counseling: I had a detailed discussion with the patient and/or guardian regarding the historical points, exam findings, and any diagnostic results supporting the discharge/admit diagnosis, lab results, radiology results, the need for further work-up and treatment in the hospital. ED course: Discussed case with Dr. Arellano and he accepts patient. Dr. Pearce of would like patient to receive Zosyn and to be n.p.o. after midnight. Discussed plan with patient and he understands and agrees with plan.. 01/03 11:00 Order name: CBC with Diff; Complete Time: 11:38 ms3 01/03 11:00 Order name: BMP; Complete Time: 12:10 ms3 01/03 12:25 Order name: Blood Culture Adult (2) ms3 01/03 12:25 Order name: Lactate w/ 2H reflex if indic.; Complete Time: 14:54 ms3 01/03 12:25 Order name: Protime (+inr); Complete Time: 14:54 ms3 01/03 12:25 Order name: Ptt, Activated; Complete Time: 14:54 ms3 01/03 12:25 Order name: LFT's; Complete Time: 14:54 ms3 01/03 13:16 Order name: Urinalysis w/ reflexes EDMS 01/03 13:16 Order name: Basic Metabolic Panel EDMS 01/03 13:16 Order name: Basic Metabolic Panel EDMS 01/03 13:16 Order name: CBC with Automated Diff EDMS 01/03 13:16 Order name: CBC with Automated Diff EDMS 01/03 13:16 Order name: Magnesium EDMS 01/03 13:16 Order name: Magnesium EDMS 01/03 13:16 Order name: Phosphorus EDMS 01/03 13:16 Order name: Phosphorus EDMS 01/03 11:00 Order name: CT Abd/Pelvis - IV Contrast Only; Complete Time: 12:16 ms3 01/03 12:25 Order name: EKG; Complete Time: 12:25 ms3 01/03 13:16 Order name: CONS Physician Consult EDMS 01/03 12:25 Order name: Accucheck; Complete Time: 12:25 ms3 01/03 12:25 Order name: Cardiac monitoring; Complete Time: 12:26 ms3 01/03 12:25 Order name: EKG - Nurse/Tech; Complete Time: 12:51 ms3 01/03 12:25 Order name: IV Saline Lock - Large Bore; Complete Time: 12:26 ms3 01/03 12:25 Order name: Labs collected and sent; Complete Time: 12:26 ms3 01/03 12:25 Order name: O2 Per Protocol; Complete Time: 12:26 ms3 01/03 12:25 Order name: O2 Sat Monitoring; Complete Time: 12:26 ms3 01/03 12:25 Order name: Vital Signs; Complete Time: 12:26 ms3 EC:50 Rate is 80 beats/min. Rhythm is regular. QRS Galva is Normal. VT interval is normal. QRS ms3 interval is normal. QT interval is normal. Clinical impression: Normal ECG. Interpreted by me. Reviewed by me. Administered Medications: 11:35 Drug: Lidocaine Mucous Membrane Gel 2 % 1 application Mucous Membrane once Route: cp4 Mucous Membrane; 14:56 Follow up: Response: No adverse reaction cp4 11:51 Drug: morphine IVP or IV 4 mg IVP once over 4 mins Route: IVP; Infused Over: 4 mins; cp4 Site: left antecubital; 14:56 Follow up: Response: No adverse reaction cp4 11:51 Drug: NS 0.9% IV 1000 ml IV at 1 bolus Per protocol; 1000 mL bolus Route: IV; Rate: 1 cp4 bolus; Site: left antecubital; 14:56 Follow up: Response: No adverse reaction; IV Status: Completed infusion cp4 13:16 Drug: Piperacillin-Tazobactam IVPB 3.375 grams IVPB once over 60 mins; (mix in NS 100 cp4 mL) Route: IVPB; Infused Over: 60 mins; Site: left antecubital; 14:16 Follow up: Response: No adverse reaction; IV Status: Completed infusion cp4 Disposition Summary: 01/03/24 12:27 Hospitalization Ordered Notes: Hospitalization Status: Inpatient Admission ms3 Provider: Jose Arellano ms3 Condition: Stable ms3 Problem: new ms3 Symptoms: are unchanged ms3 Bed/Room Type: Standard ms3 Location: Telemetry/MedSurg (Inpatient)(01/03/24 15:04) bd Room Assignment: 222(01/03/24 15:26) bd Diagnosis - Rectal Abscess ms3 - Rectal pain ms3 Forms: - Medication Reconciliation Form ms3 - SBAR form ms3 - Leadership Thank You Letter ms3 Signatures: Dispatcher [employer] EDMS Judi Parker Marcus, DO DO ms3 Myah Arauz RN RN Cindi Burdick cp4 Corrections: (The following items were deleted from the chart) 13:32 12:27 Telemetry/MedSurg (Inpatient) ms3 bd 13:32 12:27 ms3 bd 15:04 13:32 [facility] ER HOLD bd bd 15:04 13:32 ERHOLD- bd bd 15:26 15:04 216 bd bd
--- NOTE | 2024-01-03 12:28 | ER ---
Nurse's Notes [facility] Name: Rolan Torrez Age: 43 yrs Sex: Male : 1980 Arrival Date: 01/03/2024 Time: 10:22 Bed 14 Private MD: Diagnosis: Rectal Abscess;Rectal pain Presentation: 01/03 10:33 Chief complaint: Patient states: STATES HEMORRHOIDS X 5 DAYS WITH RECTAL PAIN. AND db FEVER AT HOME 100.9 TOOK TYLENOL 2 HOURS AGO. Coronavirus screen: Vaccine status: Patient reports being unvaccinated. Client denies travel out of the [place] in the last 14 days. At this time, the client does not indicate any symptoms associated with coronavirus-19. Ebola Screen: Patient negative for fever greater than or equal to 101.5 degrees Fahrenheit, and additional compatible Ebola Virus Disease symptoms Patient denies exposure to infectious person. Patient denies travel to an Ebola-affected area in the 21 days before illness onset. No symptoms or risks identified at this time. Initial Sepsis Screen: Does the patient meet any 2 criteria? HR > 90 bpm. Does the patient have a suspected source of infection? No. Patient's initial sepsis screen is negative. Risk Assessment: Do you want to hurt yourself or someone else? Patient reports no desire to harm self or others. Onset of symptoms was December 30, 2023. 10:33 Method Of Arrival: Ambulatory db 10:33 Acuity: YOEL 3 db Triage Assessment: 10:33 General: Appears in no apparent distress. uncomfortable, Behavior is cooperative. Pain: db Complains of pain in buttocks. Neuro: Level of Consciousness is awake, alert, obeys commands, Oriented to person, place, time, situation. Respiratory: Airway is patent Respiratory effort is even, unlabored, Respiratory pattern is regular, symmetrical. GI: Reports hemorrhoids. Historical: - Allergies: 10:36 No Known Allergies; db - PSHx: 10:36 toe amputation; db - Immunization history:: Adult Immunizations unknown. - Social history:: Smoking status: Patient denies any tobacco usage or history of. Screenin:38 [facility] ED Fall Risk Assessment (Adult) History of falling in the last 3 months, db including since admission No falls in past 3 months (0 pts) Confusion or Disorientation No (0 pts) Intoxicated or Sedated No (0 pts) Impaired Gait No (0 pts) Mobility Assist Device Used No (0 pt) Altered Elimination No (0 pt) Score/Fall Risk Level 0 - 2 = Low Risk Oriented to surroundings, Maintained a safe environment. Abuse screen: Denies threats or abuse. Denies injuries from another. Nutritional screening: No deficits noted. Tuberculosis screening: No symptoms or risk factors identified. Assessment: 11:25 Pain:. cp4 Vital Signs: 10:33 BP 121 / 86; Pulse 103 RA; Resp 18; Temp 96.6; Pulse Ox 95% on R/A; Weight 104.33 kg; db Height 6 ft. 0 in. ; Pain 10/10; 11:30 BP 111 / 69; Pulse 82; Resp 18; Pulse Ox 100% ; cp4 12:30 BP 111 / 87; Pulse 82; Resp 18; Pulse Ox 100% ; cp4 13:30 BP 109 / 78; Pulse 80; Resp 18; Pulse Ox 100% ; cp4 14:30 BP 105 / 84; Pulse 82; Resp 18; Pulse Ox 100% ; cp4 10:33 Body Mass Index 31.19 (104.33 kg, 182.88 cm) db 10:33 Pain Scale: Adult db ED Course: 10:25 Patient arrived in ED. mr 10:27 Yair Smith DO is Attending Physician. ms3 10:33 Arm band placed on right wrist. db 10:35 Triage completed. db 10:49 Cindi Matt is Primary Nurse. cp4 11:25 Placed in gown. Bed in low position. Call light in reach. Side rails up X 1. cp4 11:25 Inserted saline lock: 20 gauge in left antecubital area, using aseptic technique. Blood cp4 collected. 11:25 Served as a senior oracle applications developer during rectal exam. cp4 12:03 CT Abd/Pelvis - IV Contrast Only In Process Unspecified. EDMS 12:27 Jose Arellano is Hospitalizing Provider. ms3 12:41 Blood Culture Adult (2) Sent. cp4 12:41 Lactate w/ 2H reflex if indic. Sent. cp4 12:41 Protime (+inr) Sent. cp4 12:41 Ptt, Activated Sent. cp4 15:57 Provided Education on: admission. cp4 15:57 Patient admitted, IV remains in place. cp4 Administered Medications: 11:35 Drug: Lidocaine Mucous Membrane Gel 2 % 1 application Mucous Membrane once Route: cp4 Mucous Membrane; 14:56 Follow up: Response: No adverse reaction cp4 11:51 Drug: morphine IVP or IV 4 mg IVP once over 4 mins Route: IVP; Infused Over: 4 mins; cp4 Site: left antecubital; 14:56 Follow up: Response: No adverse reaction cp4 11:51 Drug: NS 0.9% IV 1000 ml IV at 1 bolus Per protocol; 1000 mL bolus Route: IV; Rate: 1 cp4 bolus; Site: left antecubital; 14:56 Follow up: Response: No adverse reaction; IV Status: Completed infusion cp4 13:16 Drug: Piperacillin-Tazobactam IVPB 3.375 grams IVPB once over 60 mins; (mix in NS 100 cp4 mL) Route: IVPB; Infused Over: 60 mins; Site: left antecubital; 14:16 Follow up: Response: No adverse reaction; IV Status: Completed infusion cp4 Medication: 11:25 VIS not applicable for this client. cp4 Outcome: 12:27 Decision to Hospitalize by Provider. ms3 15:57 Admitted to Med/surg accompanied by tech, via wheelchair, Report called to Greg cp4 15:57 Condition: stable 15:57 Instructed on the need for admit, Demonstrated understanding of instructions, follow-up care, 16:20 Patient left the ED. rachel Signatures: Dispatcher [employer] EDNH MorseNory redd, Reg Reg Yair Rush, DO DO ms3 Myah Arauz RN RN db Breneman, Mary Beth, RN RN mb9 Cindi Matt cp4 Corrections: (The following items were deleted from the chart) 10:36 10:33 Pulse 106bpm Right Arm; Resp 18bpm; Temp 96.6F; 104.33 kg; Height 6 ft.; BMI: db 31.1; Pain 10/10, Adult; db 10:38 10:33 BP 121 / 86; Pulse 106bpm Right Arm; Resp 18bpm; Temp 96.6F; 104.33 kg; Height 6 db ft. 0 in.; BMI: 31.1; Pain 10/10, Adult; db
--- NOTE | 2024-01-03 12:49 | P.HP ---
Certification for Inpatient Patient admitted to: Observation With expected LOS: >2 Midnights Patient will require the following post-hospital care: None Practitioner: I am a practitioner with admitting privileges, knowledge of patient current condition, hospital course, and medical plan of care. Services: Services provided to patient in accordance with Admission requirements found in Title 42 Section 412.3 of the Code of Federal Regulations Patient History Date of Service: 01/03/24 Reason for admission: rectal abcess History of Present Illness: Rolan Torrez is a 43-year-old male with no past medical history, Past surgical history of toe amputation who presented to the ED with complaints of hemorrhoids and fever that began last . He reports feeling like he has hemorrhoids and decided to be seen in the ED. On examination, he alert and oriented, reports morphine is controlling the pain, and laying on his right side. While in the ED he was given morphine, normal saline, Zosyn, and lidocaine gel. Initial vitals BP 121 / 86; Pulse 103 RA; Resp 18; Temp 96.6; Pulse Ox 95% on R/A Laboratory evaluation significant for white blood cells 11.[address] abdomen pelvis reports "4.7 cm abscess is present in the rectal region." Rolan will be admitted to hospital service for further evaluation and treatment of rectal abscess, Dr. Pearce consulted. Allergies No Known Allergies Allergy (Unverified 02/13/12 04:26) Home Medications: NK [No Home Meds] 01/03/24 - Past Medical/Surgical History Past Medical History: Reviewed- Non-Contributory -: toe amputation - Social History Smoking Status: Current every day smoker (1/2 pack daily) Smoking therapy provided: Yes Alcohol use: No CD- Drugs: No Review of Systems General: Fever Gastrointestinal: Other (rectal pain) Physical Examination - Physical Exam General: Alert, In no apparent distress, Oriented x3 HEENT: Atraumatic, Normocephalic, PERRLA Neck: Supple, 2+ carotid pulse no bruit, JVD not distended Respiratory: Clear to auscultation bilaterally, Normal air movement Cardiovascular: No edema, Normal pulses, Regular rate/rhythm, Normal S1 S2 Capillary refill: <2 Seconds Gastrointestinal: Normal bowel sounds, Soft and benign Musculoskeletal: No clubbing, No swelling, No contractures Integumentary: No rashes, No breakdown, No significant lesion Neurological: Normal speech, Normal strength at 5/5 x4 extr, Normal tone - Studies Laboratory Data (last 24 hrs) 01/03/24 01/03/24 11:20 11:20 WBC 11.30 H Hgb 14.2 Hct 41.4 Plt Count 240 Sodium 136 Potassium 3.7 BUN 9 Creatinine 0.93 Glucose 102 Assessment and Plan - Plan Assessment and plan Acute rectal abscess Leukocytosis WBC 11.3 Dr. Ramses Toro, morphine, Zofran WBC 11.3,neutrophils 74.4. lactate 0.6 N.p.o. at midnight gentle IVF Surgical procedure in the a.m. supportive measures DVT PPx SCDs for now Full code LOS 2 to 3 days Discharge Plan: Home Plan to discharge in: 48 Hours - Advance Directives Does patient have a Living Will: No Does patient have a Durable POA for Healthcare: No Time Spent Managing Pts Care (In Minutes): 50
[2024-01-03] MEDS ORDERED: ONDANSETRON 4 MG/2 ML VIAL IV PRN (13:07)
[2024-01-03 13:10] LABS: Protime INR 1.05
[2024-01-03] MEDS ORDERED: NA CHLORIDE 0.9% 100 ML ONE (13:10)
[2024-01-03] MEDS ORDERED: PIPERACIL/TAZO 3.375 GM VIAL IV ONE (13:10)
[2024-01-03 13:21] LABS: Albumin 2.9 g/dL (3.4-5.0); Bilirubin Direct 0.2 mg/dL (0-0.2); Bilirubin Indirect, Calculated 0.3 mg/dL (0.2-0.8); Bilirubin Total 0.5 mg/dL (0.2-1.0)
[2024-01-03 16:03] VITALS: BMI 31.1
[2024-01-03] MEDS: PIPER TAZO 3.375 GM in NA CHLORIDE 0.9% 100 ML IV SCH (16:52)
[2024-01-03] MEDS: MORPHINE 2 MG/ML SYR IV PRN (16:53)
[2024-01-03] MEDS ORDERED: INFLUENZA VACCINE (for 6+ mo) 0.5 ML DOSE IMVAC ONE (17:00)
[2024-01-03] MEDS ORDERED: MORPHINE 2 MG/ML SYR IV PRN (17:01)
[2024-01-03] MEDS: NA CHLORIDE 0.9% 1,000 ML IV SCH (20:05)
[2024-01-04 00:39] LABS: Specific Gravity > 1.030 (1.005-1.030); Urine Bilirubin NEGATIVE (Negative); Urine Blood Negative (Negative); Urine Clarity Clear (Clear); Urine Color Light-Yellow (Yellow); Urine Glucose NEGATIVE (Negative); Urine Protein NEGATIVE (Negative); Urine Urobilinogen Normal (Normal)
[2024-01-04 05:34] LABS: Absolute Lymphocytes (CBC) 3.7 K/uL (0.7-4.9); Lymphocytes % 24.8 % (15.3-44.8); MCV 92.2 fL (80-100); MPV 7.8 fL (7.6-11.3); Platelets 271 thou/uL (152-406); RBC Red Blood Cell Count 4.34 M/uL (4.33-5.43)
[2024-01-04 05:42] LABS: Magnesium 1.9 mg/dL (1.6-2.4); Phosphorus 3.7 mg/dL (2.5-4.9); Potassium 3.4 mEq/L (3.5-5.1)
[2024-01-04] MEDS ORDERED: BUPIVACAINE 0.25% PF 30 ML VIAL ONE (10:41)
[2024-01-04] MEDS ORDERED: LIDOCAINE JELLY 2% 5 ML SYRINGE TOP ONE (10:41)
[2024-01-04] MEDS ORDERED: MIDAZOLAM HCL 2 MG/2 ML INJ ONE (11:36)
[2024-01-04] MEDS ORDERED: propofoL 200 MG/20 ML VIAL IV ONE (11:41)
[2024-01-04] MEDS ORDERED: LIDOCAINE 1% MPF 5 ML VIAL ONE (11:41)
[2024-01-04] MEDS ORDERED: FENTANYL CITR 100 MCG/2 ML ONE (11:42)
[2024-01-04] MEDS ORDERED: ONDANSETRON 4 MG/2 ML VIAL ONE (12:03)
[2024-01-04] MEDS ORDERED: KETOROLAC 30 MG/ML INJ ONE (12:03)
[2024-01-04] MEDS ORDERED: dexAMETHasone 4 MG/ML VIAL ONE (12:03)
[2024-01-04] MEDS: LIDOCAINE HCL/EPINEPHRINE 20 ML MDV ONE (12:16)
[2024-01-04] MEDS: METHYLENE BLUE 1% 10 ML VIAL ONE (12:18)
--- NOTE | 2024-01-04 12:42 | P.OP ---
Preoperative diagnosis: Perirectal Abscess - LEFT of midline Postoperative diagnosis: Perirectal Abscess - LEFT of midline Primary procedure: Exam under anesthesia Secondary procedure: Incision and Drainage of Perirectal Abscess Anesthesia: GETA + Local Estimated blood loss: <5cc Specimen: Cultures, Findings: ~ 5cm perirectal abscess with extension beyond midline Complications: None Transferred to: Recovery Room Condition: Good
[2024-01-04] MEDS: POTASSIUM CL SA 10 MEQ TAB PO ONE (14:03)
--- NOTE | 2024-01-04 16:06 | P.PN ---
Date of Service: 01/04/24 Subjective ROS 10 point ROS as noted above, otherwise negative Physical Exam Awake and oriented waiting ofr surgery no new complaints Vitals Reviewed Physical Exam General: AAOx3, NAD, calm HEENT: Atraumatic, Normocephalic, PERRLA Neck: Supple, 2+ carotid pulse no bruit, JVD not distended Respiratory: Clear to auscultation bilaterally, symmetrical chest wall movement, on room air Cardiovascular: No edema, Normal pulses, RRR, S1 S2 present Capillary refill: <2 Seconds Gastrointestinal: Normoactive bowel sounds, Soft and benign on palpation Musculoskeletal: No clubbing, No swelling, No contractures Integumentary: Rectal abscess Neurological: Normal speech, Normal strength at 5/5 x4 extr, Normal tone Plan Assessment and plan Acute rectal abscess Leukocytosis WBC 14.8 Dr. Pearce Continue Zosyn, morphine, Zofran WBC 11.3,neutrophils 74.4. lactate 0.6 Follow blood cultures and surgical specimen cultures gentle IVF supportive measures wound care per Dr. Pearce-Daily dressing changes with packing - remove, irrigate, repack with vashe damp to dry - cover with gauze, tape DVT PPx SCDs for now Full code LOS 2 to 3 days Discharge Plan: Home Plan to discharge in: 48 Hours
--- NOTE | 2024-01-04 21:08 | OP ---
Date of Procedure: 01/04/2024 Surgeon: Greg Pearce MD, Preoperative Diagnosis: Perirectal abscess to the left of midline. Postoperative Diagnosis: Perirectal abscess to the left of midline. Procedures Performed: 1.Exam under anesthesia. 2.Incision and drainage of perirectal abscess. Anesthesia: General endotracheal plus local with 0.25% Marcaine. Estimated Blood Loss: 5 cc. Specimen: Cultures. Findings: Approximately 5 cm perirectal abscess with extension beyond midline and no intraanal/intra rectal involvement. Complications: None. Anesthesia: Patient is transferred to recovery room in good condition. Procedure In Detail: After informed consent was obtained, patient was brought to operating room, pre pped and draped in the usual sterile fashion. After adequate anesthesia was achieved, patient remain ed in lithotomy position. I palpated an area to the left of midline just anterior in the perineal re gion along the gluteus/perineal region. I injected this area with 0.25% Marcaine and then followed t his injection with methylene blue. At this point, I placed an anoscope into the rectal vault and pal pated the abscess cavity. No rectal involvement was appreciated. Upon anoscopy, I placed a white ga uze in the anal vault and it came out completely clear of any blue dye. At this point, I made an inc ision in the perirectal abscess and immediately encountered was abscess material. This was cultured both aerobic and anaerobic speciation. At this point, I digitized the entire cavity opening up a mul tiloculated abscess approximately 5 cm in size with extension beyond the midline in the perineal john on. All abscess material was cleaned out at this point. I irrigated the area copiously and achieved hemostasis easily with electrocautery. Area was irrigated once again and packed with Vashe-soaked d ressing and a sterile dressing was placed over top. The patient tolerated the procedure well without evidence of complication and transferred to PACU in good condition. All counts were correct at the end of the case. MG/ANNEMARIE Voice ID: [id number] Report ID: [id number]
[2024-01-05 03:39] VITALS: O2SAT 97
[2024-01-05 08:58] LABS: Absolute Lymphocytes (CBC) 2.6 K/uL (0.7-4.9); Lymphocytes % 22.3 % (15.3-44.8); MCV 92.2 fL (80-100); MPV 7.8 fL (7.6-11.3); Platelets 226 thou/uL (152-406); RBC Red Blood Cell Count 4.02 M/uL (4.33-5.43)
[2024-01-05 12:42] VITALS: BP 141/83; TEMP 97.6
--- NOTE | 2024-01-05 14:22 | P.DS ---
Admission Date: 01/03/24 Discharge Date: 01/05/24 Disposition: ROUTINE DISCHARGE Discharge Condition: GOOD Reason for Admission: rectal abcess Brief History of Present Illness: Rolan Torrez is a 43-year-old male with no past medical history, Past surgical history of toe amputation who presented to the ED with complaints of hemorrhoids and fever that began last . He reports feeling like he has hemorrhoids and decided to be seen in the ED. On examination, he alert and oriented, reports morphine is controlling the pain, and laying on his right side. While in the ED he was given morphine, normal saline, Zosyn, and lidocaine gel. Initial vitals BP 121 / 86; Pulse 103 RA; Resp 18; Temp 96.6; Pulse Ox 95% on R/A Laboratory evaluation significant for white blood cells 11.[address] abdomen pelvis reports "4.7 cm abscess is present in the rectal region." Rolan will be admitted to hospital service for further evaluation and treatment of rectal abscess, Dr. Pearce consulted. Vital Signs/Physical Exam: Temp Pulse Resp BP Pulse Ox 97.6 F 70 15 141/83 H 99 01/05/24 12:00 01/05/24 12:00 01/05/24 12:00 01/05/24 12:00 01/05/24 12:00 Laboratory Data at Discharge: WBC 11.80 thou/uL (4.3-10.9) H 01/05/24 08:45 Hgb 12.7 g/dL (13.6-17.9) L 01/05/24 08:45 Hct 37.0 % (39.6-49.0) L 01/05/24 08:45 Plt Count 226 thou/uL (152-406) 01/05/24 08:45 PT 11.5 SECONDS (9.5-12.5) 01/03/24 12:36 INR 1.05 01/03/24 12:36 APTT 31.4 SECONDS (24.3-36.9) 01/03/24 12:36 Sodium 139 mEq/L (136-145) 01/05/24 04:26 Potassium 4.0 mEq/L (3.5-5.1) D 01/05/24 04:26 BUN 11 mg/dL (7-18) 01/05/24 04:26 Creatinine 0.99 mg/dL (0.70-1.30) 01/05/24 04:26 Glucose 140 mg/dL (74-106) H 01/05/24 04:26 Phosphorus 3.7 mg/dL (2.5-4.9) 01/04/24 04:55 Magnesium 1.9 mg/dL (1.6-2.4) 01/04/24 04:55 Total Bilirubin 0.5 mg/dL (0.2-1.0) 01/03/24 12:36 AST 8 U/L (15-37) L 01/03/24 12:36 ALT 21 U/L (16-61) 01/03/24 12:36 Alkaline Phosphatase 84 U/L (45-117) 01/03/24 12:36 Home Medications: Amox/Clavulanate [Augmentin 500-125 mg Tab] 500 mg PO TID 10 Days #30 tab 01/05/24 Tramadol HCl 100 mg PO Q6H 4 Days #15 tab 01/05/24 New Medications: Amox/Clavulanate [Augmentin 500-125 mg Tab] 500 mg PO TID 10 Days #30 tab Tramadol HCl 100 mg PO Q6H 4 Days #15 tab Physician Discharge Instructions: Rolan Torrez presented to the ED with chief complaint of Rectal abscess. CT scan showed an Abscess and Dr. Pearce was consulted. Surgical intervention was performed 01/04/24. He has tolerated IV antibiotics and will follow up with Dr. Pearce in one week. Please follow the dressing change as described by Dr. Pearce (below). 1. Follow up with Dr. Pearce in one week for continued wound management 2. Establish care with a PCP for yearly medical management 3. We will call when the cultures result 4. continue regular diet 5. ambulate as tolerated 6. return to the ED if symptoms worsen New medications Augmentin 500-125 PO TID for 10 days tramadol 100 PO Q6H for 4 days, limited to 15 tablets wound care per Dr. Pearce-Daily dressing changes with packing - remove, irrigate, repack with vashe damp to dry - cover with gauze, tape Diet: Regular Activity: No lifting more than 10 lbs Followup: Greg Pearce MD [ACTIVE - CAN ADMIT] - 1 Week NONE,NONE [Primary Care Provider] -
--- NOTE | 2024-01-05 16:14 | EKG ---
Test Date: 2024-01-03 Test Time: 12:46:52 Visual Aid Expert: LARRY MEASUREMENT RESULTS: Intervals: Rate: 80 FL: 146 QRSD: 86 QT: 388 QTc: 447 [place]: P: 72 FL: 146 QRS: 81 T: 54 INTERPRETIVE STATEMENTS: Normal sinus rhythm Normal ECG Compared to ECG 03/10/2022 16:06:30 No significant changes Electronically Signed On 01-05-24 16:07:00 WHIPPER by Rafa Mejía
== END 2024-01-05 13:14 | disposition home or self-care (01) ==
LOC: ER 10:22 → ERHOLD 13:07 → 2ND 15:57
PROVIDERS: ADMIT Internal Medicine; ATTEND Internal Medicine
PROC: 0D9P0ZZ Drainage of Rectum, Open Approach (ICD-10-PCS; principal; 2024-01-04 11:15)
DX: K61.1 Rectal abscess (principal); R50.9 Fever, unspecified; D72.829 Elevated white blood cell count, unspecified; Z89.429 Acquired absence of other toe(s), unspecified side
CPT/HCPCS: 36415; 74177; 80048; 80076; 81003; 83605; 83735; 84100; 85025; 85610; 85730; 87040; 87070; 87075; 87205; 93005; 96361; 96365; 96375; 99285; G0378; J1100; J2001; J2250; J2270; J2405; J2543; J2704; J3010; J7030; Q9967

== ENCOUNTER 2024-10-15 13:53 | Emergency (ER) | payer OTHER, SELFPAY ==
--- OUTSIDE RECORDS SUMMARY | 2024-10-15 13:55 | XMS REPORT | Continuity of Care Document ---
Author Name Unknown Address [address] [facility] [address]. [address] [place] [address] [facility] [employer] Address [address] [place] [address]. [address] [place] [address] Care Team Providers Care Jive Developer Name Role Phone Unavailable Unavailable Unavailable Encounters Start Date/Time End Date/Time Encounter Type Admission Type Attending [facility] Care Facility Care Department Encounter ID Source 2024-10-01 15:41:11 2024-10-01 15:41:11 Outpatient [facility] [id number] Estevan Medina 2022-09-01 15:05:45 2022-09-01 15:05:45 Outpatient [facility] [id number] Estevan Medina Results Test Description Test Time Test Comments Results Result Co mments Source
[2024-10-15] MEDS ORDERED: dexAMETHasone 10 MG/ML VIAL ONE (16:15)
[2024-10-15] MEDS ORDERED: KETOROLAC 30 MG/ML INJ ONE (16:16)
--- NOTE | 2024-10-15 16:44 | RAD REPORT ---
EXAM: XR Knee Right 3 View HISTORY: [facility] MAIN Pain;Swelling Bed Name: [email or web address] COMPARISON: 08/15/2023 TECHNIQUE: 3 views of the right knee were obtained. FINDINGS: Partially improved moderate knee effusion is seen. There is no evidence of acute fracture o r dislocation. No significant degenerative changes are seen. No soft tissue swelling or other soft tissue abnormality is present. IMPRESSION: Partially improved moderate knee joint effusion. No evidence of acute osseous abnormality .
--- NOTE | 2024-10-15 16:52 | ER ---
Nurse's Notes [facility] Name: Rolan Torrez Age: 44 yrs Sex: Male : 1980 Arrival Date: 10/15/2024 Time: 13:53 Bed 27 Private MD: Diagnosis: Pain in right knee Presentation: 10/15 14:15 Chief complaint: Patient states: "my right knee has been hurting and swollen since aa5 thanksgiving". Denies known injury. Coronavirus screen: At this time, the client does not indicate any symptoms associated with coronavirus-19. Ebola Screen: Patient denies travel to an Ebola-affected area in the 21 days before illness onset. Initial Sepsis Screen: Does the patient meet any 2 criteria? No. Patient's initial sepsis screen is negative. Does the patient have a suspected source of infection? No. Patient's initial sepsis screen is negative. Risk Assessment: Do you want to hurt yourself or someone else? Patient reports no desire to harm self or others. Onset of symptoms was October 11, 2024. 14:15 Method Of Arrival: Ambulatory aa5 14:15 Acuity: YOEL 4 aa5 Triage Assessment: 14:16 General: Appears comfortable, Behavior is calm, cooperative. Pain: Complains of pain in aa5 right knee Pain currently is 10 out of 10 on a pain scale. Neuro: Level of Consciousness is awake, alert, obeys commands, Oriented to person, place, time, situation. Respiratory: Airway is patent Respiratory effort is even, unlabored, Respiratory pattern is regular, symmetrical. Derm: Skin is pink, warm \\T\\ dry. 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 - Infectious Disease History:: Denies. - Social history:: Smoking status: Patient reports the use of cigarette tobacco products. Screenin:15 [facility] ED Fall Risk Assessment (Adult) History of falling in the last 3 months, kb3 including since admission. [facility] ED Fall Risk Assessment (Adult) History of falling in the last 3 months, including since admission No falls in past 3 months (0 pts) Confusion or Disorientation No (0 pts) Intoxicated or Sedated No (0 pts) Impaired Gait No (0 pts) Mobility Assist Device Used No (0 pt) Altered Elimination No (0 pt) Score/Fall Risk Level 0 - 2 = Low Risk Oriented to surroundings. Abuse screen: Denies threats or abuse. Denies injuries from another. Nutritional screening: No deficits noted. Tuberculosis screening: No symptoms or risk factors identified. Assessment: 16:15 General: Appears in no apparent distress. Behavior is calm, cooperative, Pt moved to ER kb3 28, placed on stretcher, friend at bedside. Updated regarding POC, medications, awaiting xray results. Vital Signs: 14:15 BP 133 / 91; Pulse 89; Resp 16 S; Temp 98.3(O); Pulse Ox 96% on R/A; Weight 99.79 kg aa5 (R); Height 6 ft. 0 in. (R); 17:13 BP 128 / 88; Pulse 78; Resp 18; Pulse Ox 99% ; Pain 5/10; kb3 14:15 Body Mass Index 29.84 (99.79 kg, 182.88 cm) aa5 17:13 Pain Scale: Adult kb3 ED Course: 14:00 Patient arrived in ED. mg5 14:01 Elpidio Young MD is Attending Physician. ec2 14:01 Ángela Guzman PA-C is PHCP. sb4 14:15 Arm band placed on. aa5 14:16 Triage completed. aa5 14:16 Ángela Guzman PA-C is PHCP. sb4 14:48 Knee Right 3 View XRAY In Process Unspecified. EDMS 16:15 Patient has correct armband on for positive identification. Bed in low position. Call kb3 light in reach. Adult w/ patient. Provided Education on: POC, medications. 16:15 No provider procedures requiring assistance completed. Patient did not have IV access kb3 during this emergency room visit. 16:50 Amilcar Yeh MD is Referral Physician. sb4 Administered Medications: 16:21 Drug: Ketorolac IM 30 mg IM once Route: IM; Site: right ventrogluteal; kb3 17:15 Follow up: Response: No adverse reaction; Pain is decreased kb3 16:22 Drug: Dexamethasone IM 10 mg IM once Route: IM; Site: left ventrogluteal; kb3 17:15 Follow up: Response: No adverse reaction; Pain is decreased kb3 17:13 Drug: HYDROcodone-acetaminophen PO 5 mg-325 mg 1 tabs PO once Route: PO; kb3 17:15 Follow up: Response: No adverse reaction kb3 Medication: 16:15 VIS not applicable for this client. kb3 Outcome: 16:51 Discharge ordered by . sb4 17:14 Discharged to home via wheelchair, kb3 17:14 Condition: improved 17:14 Discharge instructions given to patient, Instructed on discharge instructions, follow up and referral plans. medication usage, Demonstrated understanding of instructions, follow-up care, medications, Prescriptions given X 2, 17:14 Patient left the ED. kb3 Signatures: Dispatcher [employer] EDYocasta Umana RN RN aa5 Gissel Mays RN RN kb3 Ángela Guzman, PA-C PARamonC [email or web address] Zaida Davis mg5 Elpidio Young MD MD ec2
--- NOTE | 2024-10-15 16:52 | EDPHYS ---
Physician Documentation [facility] Name: Rolan Torrez Age: 44 yrs Sex: Male : 1980 Arrival Date: 10/15/2024 Time: 13:53 Bed 27 Private MD: ED Physician Elpidio Young HPI: 10/15 14:57 This 44 yrs old Male presents to ER via Ambulatory with complaints of Knee Pain. sb4 14:57 patient reports intermittent knee pain for unknown amount of time. states it got worse sb4 4 days ago. hurts to bear weight, bend, and go up and down stairs. states that it is also swollen. pain is on the medial aspect. denies any injury. denies any history of gout. 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 - Infectious Disease History:: Denies. - Social history:: Smoking status: Patient reports the use of cigarette tobacco products. ROS: 14:57 Constitutional: Negative for fever, chills, and weight loss, sb4 14:57 MS/extremity: Positive for pain, swelling, tenderness, of the right knee, 14:57 All other systems are negative, Exam: 14:57 Constitutional: This is a well developed, well nourished patient who is awake, alert, sb4 and in no acute distress. Head/Face: Normocephalic, atraumatic. Eyes: Extra-ocular motions intact. Periorbital areas with no swelling, redness, or edema. ENT: Mucous membranes moist. Respiratory: No increased work of breathing, no retractions or nasal flaring. Skin: Warm, dry with normal turgor. Normal color with no rashes, no lesions, and no evidence of cellulitis. 14:57 Musculoskeletal/extremity: Joints: the right knee displays effusion, painful range of motion, swelling, tenderness, Vital Signs: 14:15 BP 133 / 91; Pulse 89; Resp 16 S; Temp 98.3(O); Pulse Ox 96% on R/A; Weight 99.79 kg aa5 (R); Height 6 ft. 0 in. (R); 17:13 BP 128 / 88; Pulse 78; Resp 18; Pulse Ox 99% ; Pain 5/10; kb3 14:15 Body Mass Index 29.84 (99.79 kg, 182.88 cm) aa5 17:13 Pain Scale: Adult kb3 MDM: 14:12 Medical Screening Exam initiated ec2 16:50 Data reviewed: vital signs, nurses notes, radiologic studies, and as a result, I will sb4 discharge patient. Counseling: I had a detailed discussion with the patient and/or guardian regarding the historical points, exam findings, and any diagnostic results supporting the discharge/admit diagnosis, radiology results, the need for outpatient follow up, a orthopedic surgeon, to return to the emergency department if symptoms worsen or persist or if there are any questions or concerns that arise at home. 10/15 14:19 Order name: Knee Right 3 View XRAY; Complete Time: 16:45 sb4 Administered Medications: 16:21 Drug: Ketorolac IM 30 mg IM once Route: IM; Site: right ventrogluteal; kb3 17:15 Follow up: Response: No adverse reaction; Pain is decreased kb3 16:22 Drug: Dexamethasone IM 10 mg IM once Route: IM; Site: left ventrogluteal; kb3 17:15 Follow up: Response: No adverse reaction; Pain is decreased kb3 17:13 Drug: HYDROcodone-acetaminophen PO 5 mg-325 mg 1 tabs PO once Route: PO; kb3 17:15 Follow up: Response: No adverse reaction kb3 Disposition Summary: 10/15/24 16:51 Discharge Ordered Notes: Location: Home sb4 Problem: new sb4 Symptoms: have improved sb4 Condition: Stable sb4 Diagnosis - Pain in right knee sb4 Followup: sb4 - With: Amilcar Yeh MD - When: 1 week - Reason: Recheck today's complaints, Re-evaluation by your physician Discharge Instructions: - Discharge Summary Sheet sb4 - Acute Knee Pain, Adult sb4 - Gout, [id number] sb4 Forms: - Work release form sb4 - Patient Portal Instructions sb4 - Leadership Thank You Letter sb4 Prescriptions: - ketorolac 10 mg Oral tablet - take 1 tablet ORAL route every 4 to 6 hours for 3 days as needed for pain; do sb4 not exceed 4 doses per 24 hrs; 12 tablet; Refills: 0, Product Selection Permitted - Prednisone 20 mg Oral Tablet - take 2 tablets ORAL route once daily for 5 days; 10 tablet; Refills: 0, Product sb4 Selection Permitted Signatures: Dispatcher [employer] Yocasta Wiggins RN RN aa5 Gissel Mays RN RN kb3 Ángela Guzman, PATamara PATamara sb4 Elpidio Young MD MD ec2
[2024-10-15] MEDS ORDERED: HYDROCODONE/APAP 5/325 MG TAB ONE (17:06)
[2024-10-15 17:38] VITALS: TEMP 98.3
[2024-10-15 17:40] VITALS: BP 128/88; O2SAT 99
== END 2024-10-15 17:14 | disposition home or self-care (01) ==
LOC: ER 13:53
DX: M25.561 Pain in right knee (principal)
CPT/HCPCS: 96372; 99284; J1100

== ENCOUNTER 2025-08-11 18:48 | Emergency (ER) | payer SELFPAY ==
--- OUTSIDE RECORDS SUMMARY | 2025-08-11 19:17 | XMS REPORT | Continuity of Care Document ---
Author Name Unknown Address [address] [place] [address]. 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
[2025-08-11 19:23] LABS: Influenza A Ag Negative; Influenza B Ag Negative; SARS-CoV-2 Antigen Rapid Res Negative (Negative)
[2025-08-11] MEDS ORDERED: KETOROLAC 10 MG TAB ONE (19:41)
[2025-08-11] MEDS ORDERED: METOCLOPRAMIDE 5 MG TAB ONE (19:41)
[2025-08-11] MEDS ORDERED: DIPHENOX/ATROP SULF 1 TAB PO ONE (19:42)
[2025-08-11 19:45] LABS: Absolute Lymphocytes (CBC) 2.8 K/uL (0.7-4.9); Hematocrit 46.7 % (39.6-49.0); Hemoglobin 15.9 g/dL (13.6-17.9); MCH 31.4 pg (27.0-35.0); MCHC 34.1 g/dL (32.0-36.0); MCV 92.1 fL (80-100); MPV 7.8 fL (7.6-11.3); Nucleated RBC Absolute Count 0.0 (0-0); Nucleated Red Blood Cells % 0.1 % (0-0); RBC Red Blood Cell Count 5.07 M/uL (4.33-5.43); White Blood Count 6.90 thou/uL (4.3-10.9)
[2025-08-11 20:01] LABS: ALT/SGPT 39.0 U/L (16-61); AST/SGOT 12.0 U/L (15-37); Albumin 3.5 g/dL (3.4-5.0); Albumin/Globulin Ratio 0.9 (1.1-1.8); Alkaline Phosphatase 94.0 U/L (45-117); Anion Gap 6.8 mEq/L (5.0-15.0); BUN Blood Urea Nitrogen 6.0 mg/dL (7-18); Globulin 3.8 g/dL (2.3-3.5); Glucose Level 92.0 mg/dL (74-106); Potassium 3.8 mEq/L (3.5-5.1)
--- NOTE | 2025-08-11 20:26 | ER ---
Nurse's Notes [facility] Name: Rolan Torrez Age: 45 yrs Sex: Male : 1980 Arrival Date: 08/11/2025 Time: 18:48 Bed 14 Private MD: Diagnosis: Acute viral syndrome, acute viral gastroenteritis Presentation: 08/11 18:55 Chief complaint: Patient states: I have been having body aches chills N/V/D since last jb4 tuesday. Coronavirus screen: At this time, the client does not indicate any symptoms associated with coronavirus-19. Ebola Screen: No symptoms or risks identified at this time. Initial Sepsis Screen: Does the patient meet any 2 criteria? No. Patient's initial sepsis screen is negative. Does the patient have a suspected source of infection? No. Patient's initial sepsis screen is negative. Risk Assessment: Do you want to hurt yourself or someone else? Patient reports no desire to harm self or others. Onset of symptoms was August 06, 2025. Transition of care: patient was not received from another setting of care. 18:55 Method Of Arrival: Ambulatory jb4 18:55 Acuity: YOEL 3 jb4 Historical: - Allergies: 18:56 No Known Allergies; jb4 - PMHx: 18:56 None; jb4 - PSHx: 18:56 toe amputation; jb4 - Immunization history:: Adult Immunizations up to date. - Infectious Disease History:: Denies. - Social history:: Smoking status: Patient reports the use of cigarette tobacco products, smokes one-half pack cigarettes per day. - Family history:: not pertinent. Screenin:19 [facility] ED Fall Risk Assessment (Adult) History of falling in the last 3 months, kt5 including since admission No falls in past 3 months (0 pts) Confusion or Disorientation No (0 pts) Intoxicated or Sedated No (0 pts) Impaired Gait No (0 pts) Mobility Assist Device Used No (0 pt) Altered Elimination No (0 pt) Score/Fall Risk Level 0 - 2 = Low Risk Oriented to surroundings, Maintained a safe environment. Abuse screen: Denies threats or abuse. Nutritional screening: No deficits noted. Tuberculosis screening: No symptoms or risk factors identified. Assessment: 19:04 General: received report from therapeutic support staff, all questions answered. kt5 19:19 General: Appears in no apparent distress. comfortable, Behavior is calm, cooperative, kt5 appropriate for age. Pain: Complains of pain in generalized discomfort. Neuro: No deficits noted. Mcdaniel Agitation-Sedation Scale (RASS): 0 - Alert and Calm Level of Consciousness is awake, alert, obeys commands, Oriented to person, place, time. Cardiovascular: No deficits noted. Reports None Heart tones S1 S2 present Capillary refill < 3 seconds Clubbing of nail beds is absent JVD is absent Pulses are all present. Edema is absent. Respiratory: No deficits noted. Airway is patent Trachea midline Respiratory effort is even, unlabored, Respiratory pattern is regular, symmetrical. GI: Abdomen is round non-distended, Bowel sounds present X 4 quads. Reports diarrhea, nausea, vomiting, pt c/o of loss of taste, generalized body aches, fatigue, n/v/d, denies cp or sob. : No deficits noted. No signs and/or symptoms were reported regarding the genitourinary system. EENT: No deficits noted. No signs and/or symptoms were reported regarding the EENT system. Derm: No deficits noted. No signs and/or symptoms reported regarding the dermatologic system. Skin is intact, is healthy with good turgor, Skin is dry, Skin is pink, warm \T\ dry. normal. Musculoskeletal: No deficits noted. No signs and/or symptoms reported regarding the musculoskeletal system. 19:49 General: pt po well w/o n/v. kt5 20:42 Reassessment: Patient appears in no apparent distress at this time. Patient and/or kt5 family updated on plan of care and expected duration. Pain level reassessed. Patient is alert, oriented x 3, equal unlabored respirations, skin warm/dry/pink. Patient denies pain at this time. Patient states feeling better. Patient states symptoms have improved. Vital Signs: 18:55 BP 128 / 87; Pulse 86; Resp 16; Temp 98.3(TE); Pulse Ox 100% on R/A; Weight 99 kg; me1 Height 6 ft. 0 in. (R); Pain 8/10; 19:19 BP 126 / 86; Pulse 83; Resp 18; Pulse Ox 99% ; kt5 20:42 BP 129 / 82; Pulse 80; Resp 18; Temp 98.2; Pulse Ox 100% ; Pain 3/10; kt5 18:55 Body Mass Index 29.60 (99.00 kg, 182.88 cm) me1 18:55 Pain Scale: Adult me1 20:42 Pain Scale: Adult kt5 [place] Coma Score: 08/12 02:10 Eye Response: spontaneous(4). Motor Response: obeys commands(6). Verbal Response: sp4 oriented(5). Total: 15. ED Course: 08/11 18:51 Patient arrived in ED. al6 18:55 Godwin Bhandari MD is Attending Physician. sp4 18:56 Triage completed. jb4 18:56 Arm band placed on right wrist. jb4 19:19 Deandra Grimm, RN is Primary Nurse. kt5 19:19 Bed in low position. Call light in reach. Side rails up X 1. Adult w/ patient. Client kt5 placed on continuous cardiac and pulse oximetry monitoring. NIBP monitoring applied. Door closed. Noise minimized. Pillow given. Diet: Patient given water. 19:19 No provider procedures requiring assistance completed. kt5 19:39 Initial lab(s) drawn, by me, sent to lab. Inserted saline lock: 20 gauge in right rk3 antecubital area, using aseptic technique. Blood collected. Flushed with 10 mL NS. 20:42 Provided Education on: meds and diet. kt5 20:42 IV discontinued, intact, bleeding controlled, No redness/swelling at site. Pressure kt5 dressing applied. Administered Medications: 19:48 Drug: Diphenoxylate-Atropine PO 2 tabs PO once Route: PO; kt5 20:45 Follow up: Response: No adverse reaction kt5 19:48 Drug: Ketorolac PO 10 mg PO once Route: PO; kt5 20:45 Follow up: Response: No adverse reaction; Pain is decreased kt5 19:48 Drug: MetoCLOPramide PO 10 mg PO once Route: PO; kt5 20:45 Follow up: Response: No adverse reaction; Pain is decreased kt5 Medication: 19:19 VIS not applicable for this client. kt5 Outcome: 20:25 Discharge ordered by . sp4 20:42 Discharged to home ambulatory, with family, kt5 20:42 Condition: improved 20:42 Discharge instructions given to patient, family, Instructed on discharge instructions, follow up and referral plans. Demonstrated understanding of instructions, follow-up care, medications, Prescriptions given X 3, 20:45 Patient left the ED. kt5 Signatures: Rebel Dumont, RN RN jb4 Godwin Bhandari MD MD sp4 Jennifer Byrd RN RN me1 Jenelle Elizabeth al6 Gerber Mariee rk3 Deandra Grimm RN RN kt5 Corrections: (The following items were deleted from the chart) 18:59 18:55 BP 128 / 87; Pulse 86bpm; Resp 16bpm; Pulse Ox 100% RA; Temp 98.3F Temporal; me1 Height 6 ft. 0 in. Reported; Pain 8/10, Adult; jb4
--- NOTE | 2025-08-11 20:26 | EDPHYS ---
Physician Documentation [facility] Name: Rolan Torrez Age: 45 yrs Sex: Male : 1980 Arrival Date: 08/11/2025 Time: 18:48 Bed 14 Private MD: ED Physician Godwin Bhandari HPI: 08/11 18:56 This 45 yrs old Other Race Male presents to ER via Unassigned with complaints of Flu sp4 Symptoms, Diarrhea. 08/12 02:09 45-year-old male presents with several days of nausea vomiting diarrheal illness sp4 associated with fatigue chills body aches.. Historical: - Allergies: 08/11 18:56 No Known Allergies; jb4 - PMHx: 18:56 None; jb4 - PSHx: 18:56 toe amputation; jb4 - Immunization history:: Adult Immunizations up to date. - Infectious Disease History:: Denies. - Social history:: Smoking status: Patient reports the use of cigarette tobacco products, smokes one-half pack cigarettes per day. - Family history:: not pertinent. ROS: 08/12 02:10 Constitutional: Negative for fever, and weight loss, positive body aches, positive sp4 fatigue, positive nausea vomiting diarrhea, positive for chills All other systems are negative, Exam: 02:10 Constitutional: This is a well developed, well nourished patient who is awake, alert, sp4 and in no acute distress. Head/Face: Normocephalic, atraumatic. Eyes: Pupils equal round and reactive to light, extra-ocular motions intact. Lids and lashes normal. Conjunctiva and sclera are not injected. Cornea within normal limits. Periorbital areas with no swelling, redness, or edema. ENT: Nares patent. No nasal discharge, no septal abnormalities noted. Tympanic membranes are normal and external auditory canals are clear. Oropharynx with no redness, swelling, or masses, exudates, or evidence of obstruction, uvula midline. Mucous membranes moist. Neck: Trachea midline, no thyromegaly or masses palpated, and no cervical lymphadenopathy. Supple, full range of motion without nuchal rigidity, or vertebral point tenderness. Chest/axilla: Normal chest wall appearance and motion. Nontender with no deformity. No lesions are appreciated. Cardiovascular: Regular rate and rhythm with a normal S1 and S2. No gallops, murmurs, or rubs. No pulse deficits. Respiratory: Lungs have equal breath sounds bilaterally, clear to auscultation and percussion. No rales, rhonchi or wheezes noted. No increased work of breathing, no retractions or nasal flaring. Abdomen/GI: Soft, with normal bowel sounds. No distension or tympany. No guarding or rebound. No evidence of tenderness throughout. Back: No spinal tenderness. No costovertebral tenderness. Skin: Warm, dry with normal turgor. Normal color with no rashes, no lesions, and no evidence of cellulitis. MS/ Extremity: Pulses equal, no cyanosis. Neurovascular intact. Full, normal range of motion. Neuro: Awake and alert, GCS 15, oriented to person, place, time, and situation. Cranial nerves II-XII grossly intact. Motor strength 5/5 in all extremities. Sensory grossly intact. Psych: Awake, alert, with orientation to person, place and time. Behavior, mood, and affect are within normal limits Vital Signs: 08/11 18:55 BP 128 / 87; Pulse 86; Resp 16; Temp 98.3(TE); Pulse Ox 100% on R/A; Weight 99 kg; me1 Height 6 ft. 0 in. (R); Pain 8/10; 19:19 BP 126 / 86; Pulse 83; Resp 18; Pulse Ox 99% ; kt5 20:42 BP 129 / 82; Pulse 80; Resp 18; Temp 98.2; Pulse Ox 100% ; Pain 3/10; kt5 18:55 Body Mass Index 29.60 (99.00 kg, 182.88 cm) me1 18:55 Pain Scale: Adult me1 20:42 Pain Scale: Adult kt5 [place] Coma Score: 08/12 02:10 Eye Response: spontaneous(4). Motor Response: obeys commands(6). Verbal Response: sp4 oriented(5). Total: 15. MDM: 08/11 18:57 Medical Screening Exam initiated sp4 08/12 02:11 Differential diagnosis: Nonspecific abd pain, gastritis, cholecystitis, pancreatitis, sp4 viral gastroenteritis, gastroenteritis. Data reviewed: vital signs, nurses notes, lab test result(s). Consideration of Admission/Observation Escalation of care including admission/observation considered. ED course: Stable for discharge home with as needed Lomotil Bentyl and Zofran.. 08/11 18:57 Order name: COVID-19 Ag + Flu A+B Ag; Complete Time: 20:12 sp4 08/11 19:17 Order name: CBC with Diff; Complete Time: 20:12 sp4 08/11 19:17 Order name: CMP; Complete Time: 20:12 sp4 08/11 19:17 Order name: IV Saline Lock; Complete Time: 19:39 sp4 08/11 19:17 Order name: Labs collected and sent; Complete Time: 19:39 sp4 Administered Medications: 08/11 19:48 Drug: Diphenoxylate-Atropine PO 2 tabs PO once Route: PO; kt5 20:45 Follow up: Response: No adverse reaction kt5 19:48 Drug: Ketorolac PO 10 mg PO once Route: PO; kt5 20:45 Follow up: Response: No adverse reaction; Pain is decreased kt5 19:48 Drug: MetoCLOPramide PO 10 mg PO once Route: PO; kt5 20:45 Follow up: Response: No adverse reaction; Pain is decreased kt5 Disposition: 08/12 02:11 Chart complete. sp4 Disposition Summary: 08/11/25 20:25 Discharge Ordered Notes: Location: Home sp4 Problem: new sp4 Symptoms: have improved sp4 Condition: Stable sp4 Diagnosis - Acute viral syndrome, acute viral gastroenteritis sp4 Followup: sp4 - With: Private Physician - When: As needed - Reason: Recheck today's complaints Discharge Instructions: - Discharge Summary Sheet sp4 - Viral Gastroenteritis, Adult, [id number] sp4 Forms: - Work release form sp4 - Patient Portal Instructions sp4 Prescriptions: - meloxicam 15 mg Oral tablet - take 1 tablet ORAL route daily PRN pain or fever; 30 tablet; Refills: 0, sp4 Product Selection Permitted - Lomotil 2.5-0.025 mg Oral tablet - take 1 tablet ORAL route every 6 hours As needed PRN diarrhea; 30 tablet; sp4 Refills: 0, Product Selection Permitted - ondansetron 8 mg Oral Tablet,disintegrating - take 1 tablet ORAL route every 8 hours PRN nausea; 30 tablet; Refills: 0, sp4 Product Selection Permitted Signatures: Dispatcher [facility] Rebel Mcgill RN RN jb4 Godwin Bhandari MD MD sp4 Deandra Grimm, ROM RN kt5
[2025-08-11 21:18] VITALS: BP 129/82; TEMP 98.2; O2SAT 100
== END 2025-08-11 20:45 | disposition home or self-care (01) ==
LOC: ER 18:48
DX: B34.9 Viral infection, unspecified (principal); A08.4 Viral intestinal infection, unspecified; Z11.52 Encounter for screening for COVID-19
CPT/HCPCS: 36415; 80053; 85025; 87428; 99284